=== PATIENT | female | born 1995 | race Caucasian/White ===

== ENCOUNTER 2020-12-02 09:45 | Emergency (ER) | payer MEDICAID ==
[~2020-12-02 09:45] MED LIST: AMOX250S5 PO; HYDR118S PO; TETRACAINE LOLLIPOPS PO
[2020-12-02 09:57] VITALS: BP 122/74
--- NOTE | 2020-12-02 10:19 | ED General ---
General Chief Complaint: Dental Problems/Pain Stated Complaint: TOOTH PAIN Nursing Triage Note: Pain in R upper tooth x 3 days. Woke up with swelling and increased pain today. Is supposed to have surgery to remove broken tooth but has not had it done yet. Was on clindamycin for this same tooth a couple months ago. Nursing Sepsis Screen: No Definite Risk Exam Limitations: No Limitations History of Present Illness Date Seen by Provider: Dec 02, 2020 Time Seen by Provider: 10:14 Initial Comments Patient is a 25-year-old female with chronic dental pain who presents with right upper posterior molar gingival swelling and cheek swelling. Pain is dull moderate to severe worse with mouth opening and chewing. No relief of symptoms rnql-kzo-[id number] medications. Patient awoke with facial pain and swelling to this morning. R No drooling dysphonia dysphagia. No fever chills or sweats. Most recent round of antibiotics was 3 months ago. Patient has a scheduled dental procedure for extraction in the next 2 weeks. Timing/Duration: 1-3 Hours Severity: Moderate Associated Systoms: Other Allergies and Home Medications Allergies Coded Allergies: No Known Drug Allergies (Unverified , 08/26/11) Home Medications Amoxicillin 250 Mg/5 Ml Susp.recon, 2 TSP PO BID, (Reported) Hydrocodone Bit/Acetaminophen 120 Ml Solution, 10-15 ML PO Q4HR PRN, (Reported) [Tetracaine Lollipops] , PO UD, (Reported) Patient Home Medication List Home Medication List Reviewed: Yes Review of Systems Review of Systems Constitutional: see HPI EENTM: see HPI Respiratory: see HPI Cardiovascular: see HPI Gastrointestinal: see HPI Genitourinary: see HPI Musculoskeletal: see HPI Skin: see HPI Psychiatric/Neurological: See HPI Hematologic/Lymphatic: See HPI Immunological/Allergic: see HPI All Other Systems Reviewed Negative Unless Noted: Yes Past Lzwbkfx-Rgvoqv-Midlop Hx Past Med/Social Hx: Reviewed Nursing Past Med/Soc Hx Patient Social History Alcohol Use: Denies Use Smoking Status: Current Everyday Smoker 2nd Hand Smoke Exposure: No Recent Infectious Disease Expo: No Recent Hopitalizations: No Seasonal Allergies Seasonal Allergies: No Past Medical History Surgeries: Yes (dental) Appendectomy, Tonsillectomy Respiratory: No Cardiac: No Neurological: No Female Reproductive Disorders: Endometriosis Genitourinary: No Gastrointestinal: No Musculoskeletal: No Endocrine: No HEENT: No Cancer: No Psychosocial: No Integumentary: No Blood Disorders: No Physical Exam Vital Signs Vital Signs - First Documented 12/02/20 09:57 Temp 35.8 Pulse 92 Resp 16 B/P (MAP) 122/74 (90) Pulse Ox 99 Capillary Refill : Less Than 3 Seconds Height, Weight, BMI Height: '" Weight: lbs. oz. kg; BMI Method: General Appearance: No Apparent Distress, Anxious Eyes: Bilateral Eye Normal Inspection, Bilateral Eye PERRL, Bilateral Eye Abnormal EOM HEENT: PERRL/EOMI, Normal ENT Inspection, Pharynx Normal, Other (Right maxillary swelling, right upper posterior gingival swelling with dental erosions. No facial abscess or cellulitis. No dysphonia drooling or dysphagia) Neck: Full Range of Motion, Non Tender, Supple Respiratory: Lungs Clear Cardiovascular: Regular Rate, Rhythm Focused Exam Sepsis Stage: Ruled Out Progress/Results/Core Measures Suspected Sepsis Recent Fever Within 48 Hours: No Infection Criteria Present: None New/Unexplained Altered Menta: No Sepsis Screen: No Definite Risk SIRS Temperature: Pulse: 92 Respiratory Rate: 16 Blood Pressure 122 /74 Mean: 90 Results/Orders Vital Signs/I&O 12/02/20 09:57 Temp 35.8 Pulse 92 Resp 16 B/P (MAP) 122/74 (90) Pulse Ox 99 Capillary Refill : Less Than 3 Seconds Blood Pressure Mean: 90 Departure Communication (Admissions) Dental erosion with facial swelling suspect infected dental root. No discrete abscess on exam. Antibiotics and pain medication prescribed with dental follow- up TIANNA recommended Impression Primary Impression: Dental caries Additional Impression: Right facial swelling Disposition: 01 HOME, SELF-CARE Condition: Stable Departure-Patient Inst. Decision time for Depature: 10:19 Referrals: RAHEEL HORN DO (PCP) Primary Care Physician LILLIANA LAKHANI (Family) Primary Care Physician Patient Instructions: Dental Pain, Dental Pain (DC) Add. Discharge Instructions: Please take newly prescribed medications as directed and follow-up with your dentist in the next 2 to 3 days without fail. Return to the ED for fever, pennie oling, cellulitis or abscess formation. All discharge instructions reviewed with patient and/or family. Voiced understanding. Scripts Hydrocodone/Acetaminophen (Hydrocodone-Acetamin 5-325 mg) 1 Each Tablet 1 TAB PO Q4H PRN for PAIN-MODERATE (5-7), #10 TAB Prov: ULI MARTEL DO 12/02/20 Clindamycin HCl (Clindamycin HCl) 300 Mg Capsule 300 MG PO TID, #30 CAP Prov: ULI MARTEL DO 12/02/20 ULI MARTEL DO Dec 02, 2020 10:19
[2020-12-02] MEDS ORDERED: CLIN300C12 PO (10:21)
[2020-12-02] MEDS ORDERED: ACHD5005 PO (10:21)
== END 2020-12-02 10:24 | disposition home or self-care (01) ==
LOC: EDUNIT# 09:45 → ER FS 09:47
DX: K02.9 Dental caries, unspecified (principal); R22.0 Localized swelling, mass and lump, head; Z79.2 Long term (current) use of antibiotics
CPT/HCPCS: 99282

== ENCOUNTER 2021-04-08 21:19 | Emergency (ER) | payer MEDICAID ==
[~2021-04-08] VITALS: Ht 162.6 cm; Wt 84.4 kg
[~2021-04-08 21:19] MED LIST changes: +ACHD5005 PO; +CLIN300C12 PO
[2021-04-08 21:24] VITALS: BP 138/92
--- NOTE | 2021-04-08 21:45 | ED EENT ---
History of Present Illness General Chief Complaint: Dental Problems/Pain Stated Complaint: TOOTH PAIN Nursing Triage Note: PT AMBULATE TO ROOM FS02 WITH C/O RIGHT LOWER DENTAL PAIN X1 WEEK. PT REPORTS TAKING SALTWATER RINSES, TYLENOL, IBUPROFEN, AND HEAT/COLD COMPRESSES WITHOUT RELIEF. Source: patient Exam Limitations: no limitations History of Present Illness Date Seen by Provider: Apr 08, 2021 Time Seen by Provider: 21:40 Initial Comments 35-year-old female presents with tooth pain for the last several days. Is having some jaw swelling and pain as well. Not able to see a dentist yet, but going to have an appointment soon. Denies previous problems with this tooth, but knew there was a slight break in the tooth but it has not given her problems. Denies any pain with swallowing, denies any swelling of her throat or tongue or mouth. No known drug allergies, she is taking Tylenol without relief. Allergies and Home Medications Allergies Coded Allergies: No Known Drug Allergies (Unverified , 08/26/11) Home Medications Amoxicillin 250 Mg/5 Ml Susp.recon, 2 TSP PO BID, (Reported) Clindamycin HCl 300 Mg Capsule, 300 MG PO TID Prescribed by: ULI MARTEL on 12/02/20 1021 Hydrocodone Bit/Acetaminophen 120 Ml Solution, 10-15 ML PO Q4HR PRN, (Reported) Hydrocodone/Acetaminophen 1 Each Tablet, 1 TAB PO Q4H PRN for PAIN-MODERATE (5- 7) Prescribed by: ULI MARTEL on 12/02/20 1021 [Tetracaine Lollipops] , PO UD, (Reported) Patient Home Medication List Home Medication List Reviewed: Yes Review of Systems Review of Systems Constitutional: No fever, No malaise, No weakness Mouth: see HPI, pain, swelling Throat: denies pain, denies swelling, denies discharge, denies neck stiffness Respiratory: no symptoms reported Skin: No change in color, No lesions, No lumps, No rash Past Gmlxsll-Diyrho-Jvdaoh Hx Patient Social History Tobacco Use?: Yes Tobacco type used: Cigarettes Smoking Status: Current Everyday Smoker Use of E-Cig and/or Vaping dev: Yes E-Cig or Vaping type used: CBD Use of E-Cig and/or Vaping Murray: Current Everyday User Substance use?: Yes Substance type: Other Additional substance use comme: CBD VAP Alcohol Use?: No Pt feels they are or have been: No Seasonal Allergies Seasonal Allergies: No Past Medical History Surgeries: Yes (dental) Appendectomy, Tonsillectomy Respiratory: No Cardiac: No Neurological: No Female Reproductive Disorders: Endometriosis Genitourinary: No Gastrointestinal: No Musculoskeletal: No Endocrine: No HEENT: No Cancer: No Psychosocial: No Integumentary: No Blood Disorders: No Physical Exam Vital Signs Vital Signs - First Documented 04/08/21 21:24 Temp 36.2 Pulse 72 Resp 17 B/P (MAP) 138/92 (107) O2 Delivery Room Air Height, Weight, BMI Height: '" Weight: lbs. oz. kg; 31.00 BMI Method: General Appearance: WD/WN, no apparent distress Ears: bilateral ear auricle normal, bilateral ear canal normal, bilateral ear bleeding Nose: normal inspection; No active bleeding Mouth/Throat: normal mouth inspection, pharynx normal, dental tenderness (R post lower molar w open cavity lateral molar. gum swelling surrounding) Neck: non-tender, supple; No lymphadenopathy (R), No lymphadenopathy (L) Progress/Results/Core Measures Results/Orders Vital Signs/I&O 04/08/21 21:24 Temp 36.2 Pulse 72 Resp 17 B/P (MAP) 138/92 (107) O2 Delivery Room Air Blood Pressure Mean: 107 Departure Impression Primary Impression: Dental caries Disposition: 01 HOME, SELF-CARE Condition: Stable Departure-Patient Inst. Decision time for Depature: 21:49 Referrals: RAHEEL HORN DO (PCP) Primary Care Physician LILLIANA LAKHANI (Family) Primary Care Physician Patient Instructions: Tooth Decay, Adult (DC) Add. Discharge Instructions: Call tomorrow to schedule a Dentist appointment All discharge instructions reviewed with patient and/or family. Voiced understanding. Scripts Penicillin V Potassium (Penicillin V Potassium) 500 Mg Tablet 500 MG PO TID for 7 Days, #21 TAB Prov: JOSE SNIDER DO 04/08/21 Ibuprofen (Ibuprofen) 800 Mg Tablet 800 MG PO Q8H PRN for PAIN, #30 TAB 0 Refills Prov: GONZÁLEZVENSTINEJOSE DO 04/08/21 ROJOSE JIMENES DO Apr 08, 2021 21:45
[2021-04-08] MEDS ORDERED: PENI500T PO (21:48)
[2021-04-08] MEDS ORDERED: IBUP-1780 PO (21:48)
[2021-04-08] MEDS ORDERED: AMOXICILLIN 500 MG (POLYMOX) CAP PO STA (21:48)
== END 2021-04-08 21:58 | disposition home or self-care (01) ==
LOC: EDUNIT# 21:19 → ER FS 21:20
DX: K02.9 Dental caries, unspecified (principal); F17.210 Nicotine dependence, cigarettes, uncomplicated
CPT/HCPCS: 99283

== ENCOUNTER 2021-07-06 08:09 | Emergency (ER) | payer MEDICAID ==
[~2021-07-06] VITALS: Ht 162.6 cm; Wt 86.2 kg
[~2021-07-06 08:09] MED LIST changes: +CLIN-144 PO; -CLIN300C12 PO; +IBUP-1780 PO; +PENI500T PO
[2021-07-06] MEDS ORDERED: NS IV 1000 ML 1,000 ML IV STA (08:24)
[2021-07-06] MEDS ORDERED: ONDANSETRON 4 MG/2 ML (SDV) Z0FRAN IVP STA (08:24)
--- NOTE | 2021-07-06 08:31 | ED General ---
General Stated Complaint: ABD PAIN; DIARRHEA Source of Information: Patient History of Present Illness Date Seen by Provider: Jul 06, 2021 Time Seen by Provider: 08:11 Initial Comments 26 yo female presenting with complaints of abdominal cramping and diarrhea since about 0. She is approximately 15 weeks EGA with SARA 21 December 2021 by ultrasound. She has irregular menstrual periods and thinks her last period was in January. She denies vaginal bleeding or discharge and no pain with urination. She ate [employer] yesterday and is worried she has food poisoning causing her diarrhea and abdominal cramping. She Has had this abdominal cramping with diarrhea multiple times in the past but usually it goes away after a few times of diarrhea, but this time it is lasting longer than usual. She has her next appointment with Dr. Mckinley for follow up on . She is and had spina bifida for the 2nd child during . She currently denies fever, chills, headache, cough, short of breath. She has nausea each morning during this . She does take dissolvable Zofran for that. She had 1 episode of emesis this am after coughing. She took 2 Tums but has not taken any other medicine. She denies feeling light headed or dizzy. She has had no blood in urin e, stool, or emesis. She reports the diarrhea is just watery. After she has watery diarrhea stool she has improved cramping pain in abdomen. She is worried about the baby and the and wants to hear the baby's heartbeat to know it is ok. Timing/Duration: 12 Hours Severity: Moderate Associated Systoms: No Chest Pain, No Cough, No Diaphoresis, No Fever/Chills, No Headaches, No Loss of Appetite, No Malaise; Nausea/Vomiting (chronic nausea, especially in mornings, with ); No Rash, No Seizure, No Shortness of Air, No Syncope, No Weakness Allergies and Home Medications Allergies Coded Allergies: No Known Drug Allergies (Unverified , 08/26/11) Patient Home Medication List Home Medication List Reviewed: Yes Buspirone HCl (Buspirone HCl) 15 Mg Tablet, 15 MG PO BID, (Reported) Entered as Reported by: SHAILESH TRISTAN on 07/06/21 2398 Last Action: New Order Dicyclomine HCl (Dicyclomine HCl) 10 Mg Capsule, 10 MG PO QID PRN for abdominal cramping Prescribed by: SHAILESH TRISTAN on 07/06/21 0943 Discontinued Medications Amoxicillin (Amoxicillin) 250 Mg/5 Ml Susp.recon, 2 TSP PO BID, (Reported) Entered as Reported by: CHRISTINE QUINTERO on 08/26/111614 Last Action: Discontinued Clindamycin HCl (Clindamycin HCl) 300 Mg Capsule, 300 MG PO TID Prescribed by: ULI MARTEL on 12/02/20 102 Last Action: Discontinued Hydrocodone Bit/Acetaminophen (Hydrocodone-Apap 7.5-500 Mg/15) 120 Ml Solution, 10-15 ML PO Q4HR PRN, (Reported) Entered as Reported by: CHRISTINE QUINTERO on 08/26/111614 Last Action: Discontinued Hydrocodone/Acetaminophen (Hydrocodone-Acetamin 5-325 mg) 1 Each Tablet, 1 TAB PO Q4H PRN for PAIN-MODERATE (5-7) Prescribed by: ULI MARTEL on 12/02/20 102 Last Action: Discontinued Ibuprofen (Ibuprofen) 800 Mg Tablet, 800 MG PO Q8H PRN for PAIN Prescribed by: JOSE SNIDER on 04/08/212147 Last Action: Discontinued Penicillin V Potassium (Penicillin V Potassium) 500 Mg Tablet, 500 MG PO TID Prescribed by: JOSE SNIDER on 04/08/212147 Last Action: Discontinued [Tetracaine Lollipops] , PO UD, (Reported) Entered as Reported by: CHRISTINE QUINTERO on 08/26/111614 Last Action: Discontinued Review of Systems Review of Systems Constitutional: No chills, No dizziness, No fever EENTM: no symptoms reported Respiratory: no symptoms reported Cardiovascular: no symptoms reported Gastrointestinal: see HPI Genitourinary: see HPI : Yes Expected Date of Delivery: Dec 21, 2021 Musculoskeletal: back pain (chronic low back pain) Skin: no symptoms reported Psychiatric/Neurological: Anxiety Past Kvwtofr-Femivt-Xbbtvn Hx Patient Social History Tobacco Use?: No Seasonal Allergies Seasonal Allergies: No Past Medical History Surgery/Hospitalization HX: Appendectomy Surgeries: Yes (dental) Appendectomy, Tonsillectomy Respiratory: No Cardiac: No Neurological: No Female Reproductive Disorders: Endometriosis Genitourinary: No Gastrointestinal: No Musculoskeletal: No Endocrine: No HEENT: No Cancer: No Psychosocial: No Integumentary: No Blood Disorders: No Physical Exam Vital Signs Vital Signs - First Documented 07/06/21 07/06/21 08:12 09:50 Temp 36.9 Pulse 87 Resp 17 B/P (MAP) 156/100 (118) Pulse Ox 99 O2 Delivery Room Air Capillary Refill : Height, Weight, BMI Height: '" Weight: lbs. oz. kg; 31.00 BMI Method: General Appearance: Anxious HEENT: PERRL/EOMI, Pharynx Normal Neck: Full Range of Motion, Normal Inspection, Non Tender, Supple Respiratory: Chest Non Tender, Lungs Clear, Normal Breath Sounds, No Accessory Muscle Use, No Respiratory Distress Cardiovascular: Regular Rate, Rhythm, Normal Peripheral Pulses Gastrointestinal: No Pulsatile Mass, Soft, Abnormal Bowel Sounds (hypoactive); No Guarding, No Rebound; Tenderness (mild diffuse tenderness to palpation, more pronounced in midline) Rectal: Deferred Extremity: Normal Capillary Refill, Normal Inspection, No Pedal Edema Neurologic/Psychiatric: Alert, Oriented x3, airport representative II-XII Norm as Tested Skin: Normal Color, Warm/Dry Progress/Results/Core Measures Suspected Sepsis SIRS Temperature: Pulse: Respiratory Rate: Laboratory Tests 07/06/21 08:32: White Blood Count 13.6H Blood Pressure / Mean: Laboratory Tests 07/06/21 08:32: Creatinine 0.50L, Platelet Count 354, Total Bilirubin 0.3 Results/Orders Lab Results Laboratory Tests Test 07/06/21 08:32 Range/Units White Blood Count 13.6 H 4.3-11.0 10^3/uL Red Blood Count 4.35 3.80-5.11 10^6/uL Hemoglobin 13.8 11.5-16.0 g/dL Hematocrit 41 35-52 % Mean Corpuscular Volume 93 80-99 fL Mean Corpuscular Hemoglobin 32 25-34 pg Mean Corpuscular Hemoglobin Concent 34 32-36 g/dL Red Cell Distribution Width 13.5 10.0-14.5 % Platelet Count 354 130-400 10^3/uL Mean Platelet Volume 9.1 9.0-12.2 fL Immature Granulocyte % (Auto) 1 % Neutrophils (%) (Auto) 72 42-75 % Lymphocytes (%) (Auto) 15 12-44 % Monocytes (%) (Auto) 9 0-12 % Eosinophils (%) (Auto) 3 0-10 % Basophils (%) (Auto) 0 0-10 % Neutrophils # (Auto) 9.7 H 1.8-7.8 X 10^3 Lymphocytes # (Auto) 2.1 1.0-4.0 X 10^3 Monocytes # (Auto) 1.2 H 0.0-1.0 X 10^3 Eosinophils # (Auto) 0.4 H 0.0-0.3 10^3/uL Basophils # (Auto) 0.1 0.0-0.1 10^3/uL Immature Granulocyte # (Auto) 0.1 0.0-0.1 10^3/uL Sodium Level 136 135-145 MMOL/L Potassium Level 3.9 3.6-5.0 MMOL/L Chloride Level 102 98-107 MMOL/L Carbon Dioxide Level 21 21-32 MMOL/L Anion Gap 13 5-14 MMOL/L Blood Urea Nitrogen 8 7-18 MG/DL Creatinine 0.50 L 0.60-1.30 MG/DL Estimat Glomerular Filtration Rate 148 BUN/Creatinine Ratio 16 Glucose Level 91 70-105 MG/DL Calcium Level 9.1 8.5-10.1 MG/DL Corrected Calcium 9.0 8.5-10.1 MG/DL Total Bilirubin 0.3 0.1-1.0 MG/DL Aspartate Amino Transf (AST/SGOT) 16 5-34 U/L Alanine Aminotransferase (ALT/SGPT) 9 0-55 U/L Alkaline Phosphatase 43 40-136 U/L Total Protein 7.1 6.4-8.2 GM/DL Albumin 4.1 3.2-4.5 GM/DL Lipase 17 8-78 U/L My Orders Orders - SHAILESH TRISTAN MD Comprehensive Metabolic Panel (07/06/21 08:24) Lipase (07/06/21 08:24) Ed Iv/Invasive Line Start (07/06/21 08:24) Cbc With Automated Diff (07/06/21 08:24) Ns Iv 1000 Ml (Sodium Chloride 0.9%) (07/06/21 08:24) Ondansetron Injection (Zofran Injectio (07/06/21 08:24) Heart Tones (07/06/21 08:24) Vital Signs/I&O 11/6/21 11/6/21 08:12 09:50 Temp 36.9 Pulse 87 74 Resp 17 17 B/P (MAP) 156/100 (118) 108/69 Pulse Ox 99 O2 Delivery Room Air Room Air Capillary Refill : Progress Note #1: Progress Note Check heart tones, basic labs and urine. Give IVF for hydration with Zofran for nausea. Progress Note #2: Time: 09:24 Progress Note CBC shows mild elevation of WBC to 13.6 without left shift. This could be result of , stress, dehydration, diarrhea. Chemistry without acute significant abnormality. She is resting in room after fluids and Zofran. Will obtain heart tones and anticipate discharge to home to encourage fluids and rest. Progress Note #3: Progress Note Patient feeling better and will try dicyclomine po for cramping and spasms. heart tones found easily and are in the 150s. Reassured pt and counseled on follow up and return precautions. Departure Impression Primary Impression: Diarrhea, unspecified Qualified Codes: R19.7 - Diarrhea, unspecified Additional Impressions: , incidental Abdominal cramping, generalized Disposition: 01 HOME, SELF-CARE Condition: Stable Departure-Patient Inst. Decision time for Depature: 09:42 Referrals: FAITH FREGOSO MD (PCP/Family) Primary Care Physician MARCO ANTONIO MCKINLEY DO Patient Instructions: Diarrhea, Adult ED, Taking in Enough Fluids While You Are , Medications and Add. Discharge Instructions: Keep sipping on fluids and try to stay well hydrated Check back with clinic and Dr. Mckinley for continued concerns. Follow a liquid diet for 12-24 hours and then if you tolerate that you could add in bland foods and advance your diet as you tolerate it. Scripts Dicyclomine HCl (Dicyclomine HCl) 10 Mg Capsule 10 MG PO QID PRN for abdominal cramping for 3 Days, #12 CAP 0 Refills Prov: SHAILESH TRISTAN MD 07/06/21 SHAILESH TRISTAN MD Jul 06, 2021 08:31
[2021-07-06] MEDS ORDERED: BUSP15TA60 PO (08:35)
[2021-07-06 08:41] LABS: HEMATOCRIT 41 % (35-52); HEMOGLOBIN 13.8 g/dL (11.5-16.0); MEAN CORPUSCULAR HEMOGLOBIN 32 pg (25-34); MEAN CORPUSCULAR HGB CONC 34 g/dL (32-36); MEAN CORPUSCULAR VOLUME 93 fL (80-99); MEAN PLATELET VOLUME 9.1 fL (9.0-12.2); PLATELET COUNT 354 10^3/uL (130-400); WHITE BLOOD COUNT 13.6 10^3/uL (4.3-11.0)
[2021-07-06 08:42] LABS: BASOPHILS # (AUTO) 0.1 10^3/uL (0.0-0.1); BASOPHILS % (AUTO) 0 % (0-10); EOSINOPHILS # (AUTO) 0.4 10^3/uL (0.0-0.3); EOSINOPHILS % (AUTO) 3 % (0-10); LYMPHOCYTES # (AUTO) 2.1 X 10^3 (1.0-4.0); LYMPHOCYTES % (AUTO) 15 % (12-44); MONOCYTES # (AUTO) 1.2 X 10^3 (0.0-1.0); MONOCYTES % (AUTO) 9 % (0-12); NEUTROPHILS # (AUTO) 9.7 X 10^3 (1.8-7.8); NEUTROPHILS % (AUTO) 72 % (42-75)
[2021-07-06 08:59] LABS: ALBUMIN 4.1 GM/DL (3.2-4.5); BILIRUBIN,TOTAL 0.3 MG/DL (0.1-1.0); CALCIUM 9.1 MG/DL (8.5-10.1); CREATININE SERUM 0.5 MG/DL (0.60-1.30); POTASSIUM 3.9 MMOL/L (3.6-5.0); TOTAL PROTEIN 7.1 GM/DL (6.4-8.2)
[2021-07-06] MEDS ORDERED: DICY10CA12 PO (09:43)
[2021-07-06 09:50] VITALS: BP 108/69
== END 2021-07-06 09:51 | disposition home or self-care (01) ==
LOC: EDUNIT# 08:09 → ER FS 08:10
DX: O26.892 Other specified pregnancy related conditions, second trimester (principal); R19.7 Diarrhea, unspecified; R10.84 Generalized abdominal pain; Z3A.15 15 weeks gestation of pregnancy
CPT/HCPCS: 36415; 80053; 83690; 85025

== ENCOUNTER 2021-10-21 01:51 | Emergency (ER) | payer MEDICAID ==
[~2021-10-21] VITALS: Ht 162 cm; Wt 102.0 kg
[~2021-10-21 01:51] MED LIST changes: +BUSP15TA60 PO; +DICY10CA12 PO
[2021-10-21] MEDS ORDERED: NS IV 1000 ML 1,000 ML IV SCH ×2 (02:15→03:30)
--- NOTE | 2021-10-21 02:17 | ED GU-Female ---
General Stated Complaint: FEVER History of Present Illness Date Seen by Provider: Oct 21, 2021 Time Seen by Provider: 01:57 Initial Comments 26 yr [id number] F who is 31 weeks with SARA of 12/20/21, with PMH of 1 c- section and her son having spina bifida, is here with c/o fever which began last night at 10:30 PM with associated chills and right sided flank and back pain. Denies dysuria, diarrhea, hematuria, vaginal bleeding, chest pain, SOB, cough. Pt does not drink much water, only 1 or 2 glasses a day. Pt took about 3,000mg of Tylenol since 10:30 pm last night. Denies any known sick contacts. Allergies and Home Medications Allergies Coded Allergies: No Known Drug Allergies (Unverified , 08/26/11) Patient Home Medication List Home Medication List Reviewed: Yes Buspirone HCl (Buspirone HCl) 15 Mg Tablet, 15 MG PO BID, (Reported) Entered as Reported by: SHAILESH TRISTAN on 07/06/21 0835 Dicyclomine HCl (Dicyclomine HCl) 10 Mg Capsule, 10 MG PO QID PRN for abdominal cramping Prescribed by: SHAILESH TRISTAN on 07/06/21 0943 Review of Systems Review of Systems Constitutional: no symptoms reported, chills, fever EENTM: ear pain Respiratory: no symptoms reported Cardiovascular: no symptoms reported Gastrointestinal: RUQ Genitourinary: flank pain : Yes Expected Date of Delivery: Dec 20, 2021 Musculoskeletal: back pain Skin: no symptoms reported Psychiatric/Neurological: No Symptoms Reported Endocrine: No Symptoms Reported Hematologic/Lymphatic: No Symptoms Reported Past Ijugmah-Kpcfca-Zavijx Hx Seasonal Allergies Seasonal Allergies: No Past Medical History Surgery/Hospitalization HX: Appendectomy Surgeries: Yes (dental) Appendectomy, Tonsillectomy Respiratory: No Cardiac: No Neurological: No Female Reproductive Disorders: Endometriosis Genitourinary: No Gastrointestinal: No Musculoskeletal: No Endocrine: No HEENT: No Cancer: No Psychosocial: No Integumentary: No Blood Disorders: No Physical Exam Vital Signs Vital Signs - First Documented 10/21/21 01:55 Temp 37.9 Pulse 106 Resp 17 B/P (MAP) 140/63 (88) Pulse Ox 98 O2 Delivery Room Air Capillary Refill : Height, Weight, BMI Height: '" Weight: lbs. oz. kg; 32.00 BMI Method: General Appearance: WD/WN, no apparent distress HEENT: PERRL/EOMI, normal ENT inspection, TMs normal, pharynx normal Neck: non-tender, full range of motion, supple Cardiovascular: regular rate, rhythm, no edema Respiratory: chest non-tender, lungs clear, normal breath sounds, no respiratory distress Gastrointestinal: normal bowel sounds, soft, tenderness (RUQ), other (FHR is 174) Back: normal inspection, no vertebral tenderness, CVA tenderness (R) Extremities: normal range of motion Neurologic/Psychiatric: alert, normal mood/affect, oriented x 3 Skin: normal color Progress/Results/Core Measures Suspected Sepsis SIRS Temperature: Pulse: Respiratory Rate: Laboratory Tests 10/21/21 02:05: White Blood Count 9.8 Blood Pressure / Mean: Laboratory Tests 10/21/21 02:05: Creatinine 0.46L, Platelet Count 225, Total Bilirubin 0.2 Results/Orders Lab Results Laboratory Tests Test 10/21/21 01:58 10/21/21 02:05 10/21/21 02:10 Range/Units Urine Color YELLOW Urine Clarity CLEAR Urine pH 7.0 5-9 Urine Specific [place] 1.010 L 1.016-1.022 Urine Protein NEGATIVE NEGATIVE Urine Glucose (UA) NEGATIVE NEGATIVE Urine Ketones NEGATIVE NEGATIVE Urine Nitrite NEGATIVE NEGATIVE Urine Bilirubin NEGATIVE NEGATIVE Urine Urobilinogen 0.2 < = 1.0 MG/DL Urine Leukocyte Esterase NEGATIVE NEGATIVE Urine RBC (Auto) NEGATIVE NEGATIVE Urine RBC RARE /HPF Urine WBC 0-2 /HPF Urine Squamous Epithelial Cells 2-5 /HPF Urine Crystals NONE /LPF Urine Bacteria FEW H /HPF Urine Casts NONE /LPF Urine Mucus SMALL H /LPF Urine Culture Indicated NO White Blood Count 9.8 4.3-11.0 10^3/uL Red Blood Count 3.55 L 3.80-5.11 10^6/uL Hemoglobin 11.2 L 11.5-16.0 g/dL Hematocrit 32 L 35-52 % Mean Corpuscular Volume 91 80-99 fL Mean Corpuscular Hemoglobin 32 25-34 pg Mean Corpuscular Hemoglobin Concent 35 32-36 g/dL Red Cell Distribution Width 12.9 10.0-14.5 % Platelet Count 225 130-400 10^3/uL Mean Platelet Volume 9.4 9.0-12.2 fL Immature Granulocyte % (Auto) 1 % Neutrophils (%) (Auto) 75 42-75 % Lymphocytes (%) (Auto) 6 L 12-44 % Monocytes (%) (Auto) 15 H 0-12 % Eosinophils (%) (Auto) 3 0-10 % Basophils (%) (Auto) 1 0-10 % Neutrophils # (Auto) 7.4 1.8-7.8 10^3/uL Lymphocytes # (Auto) 0.6 L 1.0-4.0 10^3/uL Monocytes # (Auto) 1.5 H 0.0-1.0 10^3/uL Eosinophils # (Auto) 0.3 0.0-0.3 10^3/uL Basophils # (Auto) 0.1 0.0-0.1 10^3/uL Immature Granulocyte # (Auto) 0.1 0.0-0.1 10^3/uL Neutrophils % (Manual) 79 % Lymphocytes % (Manual) 5 % Monocytes % (Manual) 9 % Eosinophils % (Manual) 1 % Myelocytes % 1 % Band Neutrophils 3 % Atypical Lymphocytes 1 % Reactive Lymphocytes 1 % Platelet Estimate NORMAL Blood Morphology Comment NORMAL Sodium Level 137 135-145 MMOL/L Potassium Level 3.6 3.6-5.0 MMOL/L Chloride Level 103 98-107 MMOL/L Carbon Dioxide Level 18 L 21-32 MMOL/L Anion Gap 16 H 5-14 MMOL/L Blood Urea Nitrogen 5 L 7-18 MG/DL Creatinine 0.46 L 0.60-1.30 MG/DL Estimat Glomerular Filtration Rate 134 BUN/Creatinine Ratio 11 Glucose Level 115 H 70-105 MG/DL Calcium Level 8.9 8.5-10.1 MG/DL Corrected Calcium 9.4 8.5-10.1 MG/DL Total Bilirubin 0.2 0.1-1.0 MG/DL Aspartate Amino Transf (AST/SGOT) 61 H 5-34 U/L Alanine Aminotransferase (ALT/SGPT) 28 0-55 U/L Alkaline Phosphatase 61 40-136 U/L Total Protein 6.1 L 6.4-8.2 GM/DL Albumin 3.4 3.2-4.5 GM/DL Lipase 21 8-78 U/L Serum Alcohol < 10 <10 MG/DL Monoscreen NEGATIVE NEGATIVE Influenza Type A Antigen NEGATIVE NEGATIVE Influenza Type B Antigen NEGATIVE NEGATIVE My Orders Orders - JULIO MENDEZ MD Ed Iv/Invasive Line Start (10/21/21 02:04) Ns Iv 1000 Ml (Sodium Chloride 0.9%) (10/21/21 02:15) Cbc With Automated Diff (10/21/21 02:04) Comprehensive Metabolic Panel (10/21/21 02:04) Coronavirus Sars-Cov-2 So 2018 (10/21/21 02:04) Influenza A & B Antigens (10/21/21 02:04) Ua Culture If Indicated (10/21/21 02:08) Manual Differential (10/21/21 02:05) Ns Iv 1000 Ml (Sodium Chloride 0.9%) (10/21/21 03:13) Ns Iv 1000 Ml (Sodium Chloride 0.9%) (10/21/21 03:30) Monotest (10/21/21 03:19) Lipase (10/21/21 03:22) Alcohol (10/21/21 03:23) Vital Signs/I&O 10/21/21 01:55 Temp 37.9 Pulse 106 Resp 17 B/P (MAP) 140/63 (88) Pulse Ox 98 O2 Delivery Room Air Capillary Refill : Progress Note : Progress Note 1. RIGHT FLANK PAIN/ FEVER: - Labs show an elevated monocyte count and elevated AST of 61. Monospot test negative, s. ETOH negative - COVID test pending, Flu test negative - UA unremarkable - Pt took 3000mg of Tylenol since 10:30 PM last night - Pt is so cannot have CT scan. Ordered out-patient u/s for the morning. Advised to f/u with JUNIOR SALES REPRESENTATIVE and PCP TIANNA for u/s results and further management. 2. DEHYDRATION: - Decreased BUN and creatinine - NS IVF bolus x 2 - Advised increased water intake, since pt has not been drinking much water Departure Impression Primary Impression: Dehydration during Additional Impression: Right flank pain Disposition: 01 HOME, SELF-CARE Condition: Improved Departure-Patient Inst. Referrals: FAITH FREGOSO MD (PCP/Family) Primary Care Physician Patient Instructions: Flank Pain (DC), Why Water Is Important to Health, Dehydration, Adult ED Add. Discharge Instructions: Increased water intake with goal of 8 to 10 glasses a day Ultrasound appointment in the morning in clinic - F/u with PCP and JUNIOR SALES REPRESENTATIVE Work/School Note: Work Release Form Date Seen in the Emergency Department: Oct 21, 2021 Return to Work: Oct 27, 2021 Restrictions: Need Release from Doctor Other Restrictions Listed Below: Quarantine until COVID test returns negative. Pt needs clearance by PCP JULIO MENDEZ MD Oct 21, 2021 02:17
[2021-10-21 02:20] LABS: BASOPHILS # (AUTO) 0.1 10^3/uL (0.0-0.1); BASOPHILS % (AUTO) 1 % (0-10); EOSINOPHILS # (AUTO) 0.3 10^3/uL (0.0-0.3); EOSINOPHILS % (AUTO) 3 % (0-10); HEMATOCRIT 32 % (35-52); HEMOGLOBIN 11.2 g/dL (11.5-16.0); LYMPHOCYTES # (AUTO) 0.6 10^3/uL (1.0-4.0); LYMPHOCYTES % (AUTO) 6 % (12-44); MEAN CORPUSCULAR HEMOGLOBIN 32 pg (25-34); MEAN CORPUSCULAR HGB CONC 35 g/dL (32-36); MEAN CORPUSCULAR VOLUME 91 fL (80-99); MEAN PLATELET VOLUME 9.4 fL (9.0-12.2); MONOCYTES # (AUTO) 1.5 10^3/uL (0.0-1.0); MONOCYTES % (AUTO) 15 % (0-12); NEUTROPHILS # (AUTO) 7.4 10^3/uL (1.8-7.8); NEUTROPHILS % (AUTO) 75 % (42-75); PLATELET COUNT 225 10^3/uL (130-400); WHITE BLOOD COUNT 9.8 10^3/uL (4.3-11.0)
[2021-10-21 02:28] LABS: BILIRUBIN,URINE NEGATIVE (NEGATIVE); CLARITY,URINE CLEAR; COLOR,URINE YELLOW; GLUCOSE, URINE (UA) NEGATIVE (NEGATIVE); KETONES,URINE NEGATIVE (NEGATIVE); LEUKOCYTE ESTERASE ,URINE NEGATIVE (NEGATIVE); NITRITE,URINE NEGATIVE (NEGATIVE); PROTEIN,URINE NEGATIVE (NEGATIVE)
[2021-10-21 02:45] LABS: BACTERIA,URINE FEW /HPF; RBC,URINE RARE /HPF; WBC,URINE 0-2 /HPF
[2021-10-21 02:48] LABS: ALBUMIN 3.4 GM/DL (3.2-4.5); BILIRUBIN,TOTAL 0.2 MG/DL (0.1-1.0); CALCIUM 8.9 MG/DL (8.5-10.1); CREATININE SERUM 0.46 MG/DL (0.60-1.30); POTASSIUM 3.6 MMOL/L (3.6-5.0); TOTAL PROTEIN 6.1 GM/DL (6.4-8.2)
[2021-10-21 02:50] LABS: ATYPICAL LYMPHOCYTES 1 %; BAND NEUTROPHILS 3 %; EOSINOPHILS % (MANUAL) 1 %; LYMPHOCYTES % (MANUAL) 5 %; MONOCYTES % (MANUAL) 9 %; MYELOCYTES % 1 %; NEUTROPHILS % (MANUAL) 79 %; PLATELET ESTIMATE NORMAL; RBC MORPH NORMAL; REACTIVE LYMPHOCYTES 1 %
[2021-10-21] MEDS ORDERED: NS IV 1000 ML 1,000 ML ONE (03:13)
[2021-10-21 03:45] LABS: LIPASE 21 U/L (8-78)
[2021-10-21 04:15] VITALS: BP 128/66
[2021-10-21] MEDS ORDERED: RX-OXYCODONE/APAP 5-325 MG #4 TAB PK PO PRN (04:15)
== END 2021-10-21 04:15 | disposition home or self-care (01) ==
LOC: EDUNIT# 01:51 → ER FS 01:53
DX: O98.513 Other viral diseases complicating pregnancy, third trimester (principal); U07.1 COVID-19; O26.893 Other specified pregnancy related conditions, third trimester; E86.0 Dehydration; R10.11 Right upper quadrant pain; Z3A.31 31 weeks gestation of pregnancy
CPT/HCPCS: 36415; 80053; 81000; 83690; 85007; 85027; 86308; 87635; 87804; 99284; G0480; 80320

== ENCOUNTER 2021-12-29 16:18 | Emergency (ER) | payer MEDICAID ==
[~2021-12-29] VITALS: Ht 162.5 cm; Wt 94.3 kg
--- NOTE | 2021-12-29 16:46 | ED General ---
General Chief Complaint: Skin/Wound Problems Stated Complaint: OPEN SUTURE Source of Information: Patient Exam Limitations: No Limitations History of Present Illness Date Seen by Provider: December 29, 2021 Time Seen by Provider: 16:23 Initial Comments 26-year-old female that had a recent on December 17 coming in due to concerns for her wound opening up a little bit on the left with some drainage. She has been treated with Bactrim for the past week for concerns for an infection around the incision. Dr. Mckinley here in town did the surgery. She is having moderate, constant, sharp pain around the which is slightly increased over the past couple days. She has been taking Tylenol as needed wh ich has been helping. She is otherwise denying any other acute complaints including any fever or nausea. Allergies and Home Medications Allergies Coded Allergies: No Known Drug Allergies (Unverified , 08/26/11) Patient Home Medication List Home Medication List Reviewed: Yes Buspirone HCl (Buspirone HCl) 15 Mg Tablet, 15 MG PO BID, (Reported) Entered as Reported by: SHAILESH TRISTAN on 07/06/21 0835 Dicyclomine HCl (Dicyclomine HCl) 10 Mg Capsule, 10 MG PO QID PRN for abdominal cramping Prescribed by: SHAILESH TRISTAN on 07/06/21 0943 Review of Systems Review of Systems Constitutional: No chills, No fever EENTM: No blurred vision Respiratory: no symptoms reported Cardiovascular: no symptoms reported Gastrointestinal: no symptoms reported Genitourinary: no symptoms reported Musculoskeletal: no symptoms reported Skin: other (Redness around her incision with some drainage) Psychiatric/Neurological: No Symptoms Reported Hematologic/Lymphatic: No Symptoms Reported Immunological/Allergic: no symptoms reported All Other Systems Reviewed Negative Unless Noted: Yes Past Pjgdpxx-Cbbcbj-Pmutnf Hx Patient Social History Substance use?: No Immunizations Up To Date First/Initial COVID19 Vaccinat: denies Seasonal Allergies Seasonal Allergies: No Past Medical History Surgery/Hospitalization HX: Appendectomy Surgeries: Yes (dental) Appendectomy, Tonsillectomy Respiratory: No Cardiac: No Neurological: No Female Reproductive Disorders: Endometriosis Genitourinary: No Gastrointestinal: No Musculoskeletal: No Endocrine: No HEENT: No Cancer: No Psychosocial: No Integumentary: No Blood Disorders: No Physical Exam Vital Signs Capillary Refill : Height, Weight, BMI Height: '" Weight: lbs. oz. kg; 38.00 BMI Method: General Appearance: No Apparent Distress, WD/WN Eyes: Bilateral Eye Normal Inspection HEENT: PERRL/EOMI, Normal ENT Inspection, Pharynx Normal Neck: Full Range of Motion, Normal Inspection, Non Tender, Supple Respiratory: Chest Non Tender, Lungs Clear, Normal Breath Sounds, No Accessory Muscle Use, No Respiratory Distress Cardiovascular: Regular Rate, Rhythm, No Edema, Normal Peripheral Pulses Gastrointestinal: Normal Bowel Sounds, Non Tender, Soft; No Distended, No Guarding; Other ( scar with some slight opening around the wound on the left wound edge with some minimal purulent drainage that is mixed with some blood, mild erythema that is blanching around the incision) Back: Normal Inspection, No CVA Tenderness, No Vertebral Tenderness Extremity: Normal Capillary Refill, Normal Inspection, Normal Range of Motion, Non Tender, No Calf Tenderness, No Pedal Edema Neurologic/Psychiatric: Alert, No Motor/Sensory Deficits, Normal Mood/Affect Skin: Normal Color, Warm/Dry Lymphatic: No Adenopathy Progress/Results/Core Measures Suspected Sepsis SIRS Temperature: Pulse: Respiratory Rate: Laboratory Tests 12/29/21 16:48: White Blood Count 11.3H Blood Pressure / Mean: Laboratory Tests 12/29/21 16:48: Creatinine 0.70, Platelet Count 452H, Total Bilirubin 0.2 Results/Orders Lab Results Laboratory Tests Test 12/29/21 16:48 Range/Units White Blood Count 11.3 H 4.3-11.0 10^3/uL Red Blood Count 4.24 3.80-5.11 10^6/uL Hemoglobin 13.1 11.5-16.0 g/dL Hematocrit 39 35-52 % Mean Corpuscular Volume 91 80-99 fL Mean Corpuscular Hemoglobin 31 25-34 pg Mean Corpuscular Hemoglobin Concent 34 32-36 g/dL Red Cell Distribution Width 13.4 10.0-14.5 % Platelet Count 452 H 130-400 10^3/uL Mean Platelet Volume 8.9 L 9.0-12.2 fL Immature Granulocyte % (Auto) 1 % Neutrophils (%) (Auto) 53 42-75 % Lymphocytes (%) (Auto) 27 12-44 % Monocytes (%) (Auto) 12 0-12 % Eosinophils (%) (Auto) 6 0-10 % Basophils (%) (Auto) 1 0-10 % Neutrophils # (Auto) 6.0 1.8-7.8 10^3/uL Lymphocytes # (Auto) 3.1 1.0-4.0 10^3/uL Monocytes # (Auto) 1.3 H 0.0-1.0 10^3/uL Eosinophils # (Auto) 0.7 H 0.0-0.3 10^3/uL Basophils # (Auto) 0.1 0.0-0.1 10^3/uL Immature Granulocyte # (Auto) 0.1 0.0-0.1 10^3/uL Sodium Level 138 135-145 MMOL/L Potassium Level 3.6 3.6-5.0 MMOL/L Chloride Level 103 98-107 MMOL/L Carbon Dioxide Level 22 21-32 MMOL/L Anion Gap 13 5-14 MMOL/L Blood Urea Nitrogen 16 7-18 MG/DL Creatinine 0.70 0.60-1.30 MG/DL Estimat Glomerular Filtration Rate 121 BUN/Creatinine Ratio 23 Glucose Level 102 70-105 MG/DL Calcium Level 9.6 8.5-10.1 MG/DL Corrected Calcium 9.6 8.5-10.1 MG/DL Total Bilirubin 0.2 0.1-1.0 MG/DL Aspartate Amino Transf (AST/SGOT) 32 5-34 U/L Alanine Aminotransferase (ALT/SGPT) 29 0-55 U/L Alkaline Phosphatase 88 40-136 U/L C-Reactive Protein 1.76 H <0.50 MG/DL Total Protein 7.2 6.4-8.2 GM/DL Albumin 4.0 3.2-4.5 GM/DL My Orders Orders - LILLIANA NAVA MD Cbc With Automated Diff (12/29/21 16:43) Comprehensive Metabolic Panel (12/29/21 16:43) Wound Culture (12/29/21 16:43) Crp Fs (12/29/21 16:43) Vital Signs/I&O Capillary Refill : Progress Note : Progress Note 26-year-old female here for concerns for wound infection. There is a small opening but is not completely dehisced. There are some purulent drainage which we cultured. White count around 11 and CRP just slightly elevated around 1.7. I contacted Dr. Mckinley and he wants to follow her up in clinic tomorrow. We will change her over to clindamycin. She was then discharged home in stable condition with strict return precautions Departure Impression Primary Impression: Post op infection Qualified Codes: T81.41XA - Infection following a procedure, superficial incisional surgical site, initial encounter Disposition: HOME, SELF-CARE Condition: Stable Departure-Patient Inst. Decision time for Depature: 17:27 Referrals: FAITH FREGOSO MD (PCP) Primary Care Physician Patient Instructions: Wound Infection Add. Discharge Instructions: [facility] You will need to begin taking them immediately. Follow-up with Dr. Mckinley tomorrow. Call his office in the morning to schedule the appointment. Scripts Hydrocodone Bit/Acetaminophen (HYDROcodone/APAP 5 MG/325 MG TAB) 1 Tab Tab 1 TAB PO Q6H for Pain for 2 Days, #8 TAB 0 Refills Prov: LILLIANA NAVA MD 12/29/21 Clindamycin HCl (Clindamycin HCl) 300 Mg Capsule 300 MG PO QID for 7 Days, #28 CAP Prov: LILLIANA NAVA MD 12/29/21 Work/School Note: Work Release Form Date Seen in the Emergency Department: December 29, 2021 Return to Work: December 30, 2021 Restrictions: No Restrictions LILLIANA NAVA MD December 29, 2021 16:46
[2021-12-29 16:55] LABS: BASOPHILS # (AUTO) 0.1 10^3/uL (0.0-0.1); BASOPHILS % (AUTO) 1 % (0-10); EOSINOPHILS # (AUTO) 0.7 10^3/uL (0.0-0.3); EOSINOPHILS % (AUTO) 6 % (0-10); HEMATOCRIT 39 % (35-52); HEMOGLOBIN 13.1 g/dL (11.5-16.0); LYMPHOCYTES # (AUTO) 3.1 10^3/uL (1.0-4.0); LYMPHOCYTES % (AUTO) 27 % (12-44); MEAN CORPUSCULAR HEMOGLOBIN 31 pg (25-34); MEAN CORPUSCULAR HGB CONC 34 g/dL (32-36); MEAN CORPUSCULAR VOLUME 91 fL (80-99); MEAN PLATELET VOLUME 8.9 fL (9.0-12.2); MONOCYTES # (AUTO) 1.3 10^3/uL (0.0-1.0); MONOCYTES % (AUTO) 12 % (0-12); NEUTROPHILS % (AUTO) 53 % (42-75); PLATELET COUNT 452 10^3/uL (130-400); WHITE BLOOD COUNT 11.3 10^3/uL (4.3-11.0)
[2021-12-29 17:20] LABS: CREATININE SERUM 0.7 MG/DL (0.60-1.30); POTASSIUM 3.6 MMOL/L (3.6-5.0)
[2021-12-29 17:21] LABS: BILIRUBIN,TOTAL 0.2 MG/DL (0.1-1.0); CALCIUM 9.6 MG/DL (8.5-10.1); TOTAL PROTEIN 7.2 GM/DL (6.4-8.2)
[2021-12-29] MEDS ORDERED: CLIN-144 PO (17:28)
[2021-12-29] MEDS ORDERED: ACHD5005 PO (17:28)
[2021-12-29] MEDS ORDERED: CLINDAMYCIN 150 MG (CLEOCIN) CAP PO STA (17:29)
[2021-12-29 18:42] VITALS: BP 139/89
== END 2021-12-29 17:47 | disposition home or self-care (01) ==
LOC: EDUNIT# 16:18 → ER FS 16:19
DX: T81.41XA Infection following a procedure, superficial incisional surgical site, initial encounter (principal)
CPT/HCPCS: 36415; 80053; 85025; 86141; 87070; 87205

== ENCOUNTER 2022-02-09 20:47 | Emergency (ER) | payer MEDICAID ==
[~2022-02-09] VITALS: Ht 162 cm; Wt 92.1 kg
--- NOTE | 2022-02-09 20:56 | ED Lower Extremity ---
General Stated Complaint: RIGHT ANKLE INJURY History of Present Illness Date Seen by Provider: Feb 09, 2022 Time Seen by Provider: 20:55 Initial Comments 26 yo with right ankle injury. pt reports she tripped down a step then tripped over a tree root. pt with swelling and tenderness to lateral aspect of right ankle and upper right foot. pt able to bear weight. has used an janet wrap. no other injury reported. Allergies and Home Medications Allergies Coded Allergies: No Known Drug Allergies (Unverified , 08/26/11) Patient Home Medication List Home Medication List Reviewed: Yes Buspirone HCl (Buspirone HCl) 15 Mg Tablet, 15 MG PO BID, (Reported) Entered as Reported by: SHAILESH TRISTAN on 07/06/21 0835 Clindamycin HCl (Clindamycin HCl) 300 Mg Capsule, 300 MG PO QID Prescribed by: LILLIANA NAVA on 12/29/21 1728 Dicyclomine HCl (Dicyclomine HCl) 10 Mg Capsule, 10 MG PO QID PRN for abdominal cramping Prescribed by: SHAILESH TRISTAN on 07/06/21 0943 Hydrocodone Bit/Acetaminophen (HYDROcodone/APAP 5 MG/325 MG TAB) 1 Tab Tab, 1 TAB PO Q6H Prescribed by: LILLIANA NAVA on 12/29/21 1729 Review of Systems Constitutional: no symptoms reported EENTM: no symptoms reported Respiratory: no symptoms reported Cardiovascular: no symptoms reported Gastrointestinal: no symptoms reported Genitourinary: no symptoms reported Musculoskeletal: see HPI Skin: see HPI Psychiatric/Neurological: No Symptoms Reported Past Knojqeg-Krkrfr-Qrbotd Hx Immunizations Up To Date First/Initial COVID19 Vaccinat: Not currently vaccinated Seasonal Allergies Seasonal Allergies: No Past Medical History Surgery/Hospitalization HX: x2 most current 12/17/21; Tonsilectomy; Appendectomy; Depression. Surgeries: Yes (dental) Appendectomy, Tonsillectomy Respiratory: No Cardiac: No Neurological: No Female Reproductive Disorders: Endometriosis Genitourinary: No Gastrointestinal: No Musculoskeletal: No Endocrine: No HEENT: No Cancer: No Psychosocial: No Integumentary: No Blood Disorders: No Physical Exam Vital Signs Capillary Refill : Height, Weight, BMI Height: '" Weight: lbs. oz. kg; 35.00 BMI Method: General Appearance: WD/WN, no apparent distress HEENT: PERRL/EOMI Cardiovascular: normal peripheral pulses, regular rate, rhythm Hips: bilateral hip non-tender Legs: bilateral leg non-tender Knees: bilateral knee non-tender Ankles: right ankle soft tissue tenderness, right ankle swelling Feet: right foot swelling Neurologic/Psychiatric: alert, normal mood/affect, oriented x 3 Skin: normal color, warm/dry Progress/Results/Core Measures Results/Orders My Orders Orders - SB PINZON DO Ankle 3 View Right (02/09/22 20:57) Gel Ankle Brace (02/09/22 21:24) Progress Progress Note : Progress Note Patient x-ray with some soft tissue swelling but no acute fracture. Placed in a gel ankle brace. Patient stable and discharged Diagnostic Imaging Diagonstic Imaging: Xray Plain Films/CT/US/NM/MRI: ankle Comments No acute fracture or dislocation noted Reviewed: Reviewed by Me Departure Impression Primary Impression: Right ankle sprain Qualified Codes: S93.401A - Sprain of unspecified ligament of right ankle, initial encounter Disposition: 01 HOME, SELF-CARE Condition: Stable Departure-Patient Inst. Referrals: FAITH FREGOSO MD (PCP/Family) Primary Care Physician Patient Instructions: Ankle Sprain, Using Cold for Pain Add. Discharge Instructions: Elevate your right leg when not able Ice for 20 minutes at a time 3-4 times daily for the next 2 days Tylenol or ibuprofen as needed for pain Follow-up with your primary care provider in 1 week if symptoms or not improving or worse for repeat x-ray SB PINZON DO Feb 09, 2022 20:56
--- NOTE | 2022-02-09 21:26 | Diagnostic Imaging Report ---
EXAM: Ankle 3 view right INDICATION: Right ankle pain. Trauma. COMPARISON: None. FINDINGS: No fracture or malalignment. Soft tissue shadows are unremarkable. IMPRESSION: Negative right ankle radiographs. Dictated by: Dictated on workstation # [id number]
[2022-02-09 21:57] VITALS: BP 133/110
== END 2022-02-09 21:59 | disposition home or self-care (01) ==
LOC: EDUNIT# 20:47 → ER FS 20:49
DX: S93.401A Sprain of unspecified ligament of right ankle, initial encounter (principal); Z28.310 Unvaccinated for COVID-19; W18.49XA Other slipping, tripping and stumbling without falling, initial encounter
CPT/HCPCS: 73610; 99282; L4350

== ENCOUNTER 2022-05-13 23:46 | Emergency (ER) | payer MEDICAID ==
[2022-05-14 00:02] LABS: BILIRUBIN,URINE NEGATIVE (NEGATIVE); CLARITY,URINE CLOUDY; COLOR,URINE YELLOW; GLUCOSE, URINE (UA) NEGATIVE (NEGATIVE); KETONES,URINE NEGATIVE (NEGATIVE); LEUKOCYTE ESTERASE ,URINE NEGATIVE (NEGATIVE); NITRITE,URINE NEGATIVE (NEGATIVE); PROTEIN,URINE TRACE (NEGATIVE)
[2022-05-14 00:08] LABS: BACTERIA,URINE NEGATIVE /HPF; RBC,URINE 50-100 /HPF; SQUAMOUS EPITHELIAL CELL,UR 0-2 /HPF; WBC,URINE RARE /HPF
[2022-05-14 00:36] LABS: BASOPHILS # (AUTO) 0.1 10^3/uL (0.0-0.1); BASOPHILS % (AUTO) 1 % (0-10); EOSINOPHILS # (AUTO) 0.5 10^3/uL (0.0-0.3); EOSINOPHILS % (AUTO) 5 % (0-10); HEMATOCRIT 40 % (35-52); HEMOGLOBIN 13.8 g/dL (11.5-16.0); LYMPHOCYTES # (AUTO) 2.7 10^3/uL (1.0-4.0); LYMPHOCYTES % (AUTO) 27 % (12-44); MEAN CORPUSCULAR HEMOGLOBIN 31 pg (25-34); MEAN CORPUSCULAR HGB CONC 34 g/dL (32-36); MEAN CORPUSCULAR VOLUME 90 fL (80-99); MEAN PLATELET VOLUME 9.6 fL (9.0-12.2); MONOCYTES # (AUTO) 1.2 10^3/uL (0.0-1.0); MONOCYTES % (AUTO) 12 % (0-12); NEUTROPHILS # (AUTO) 5.6 10^3/uL (1.8-7.8); NEUTROPHILS % (AUTO) 56 % (42-75); PLATELET COUNT 293 10^3/uL (130-400)
[2022-05-14 00:56] LABS: ALBUMIN 4.3 GM/DL (3.2-4.5); BILIRUBIN,TOTAL 0.2 MG/DL (0.1-1.0); CALCIUM 8.8 MG/DL (8.5-10.1); CREATININE SERUM 0.89 MG/DL (0.60-1.30); POTASSIUM 3.7 MMOL/L (3.6-5.0); TOTAL PROTEIN 7.1 GM/DL (6.4-8.2)
[2022-05-14] MEDS ORDERED: KETOROLAC 30 MG/ML VIAL IVP ONE (01:15)
--- NOTE | 2022-05-14 01:16 | ED Abdominal Pain ---
General Chief Complaint: - Reproductive Stated Complaint: LOWER ABD CRAMPING Nursing Triage Note: Pt complaining of right pelvic pain and right lower back pain. Pt states she was a couple of weeks late starting her period and thought she might be , but ended up starting her cycle today. Pt also states she has a hysterectomy scheduled for July 01. Source of Information: Patient Exam Limitations: No Limitations History of Present Illness Date Seen by Provider: May 13, 2022 Time Seen by Provider: 23:57 Initial Comments This 26-year-old young lady who suffers from endometriosis presents to the emergency room with complaints of right flank pain radiating down to the right lower abdomen that started earlier today. After the pain started she began her menstrual cycle. She is about 2 weeks late which makes her concerned for possible and miscarriage. She has been treated for endometriosis by Dr. Mckinley. She has a pending hysterectomy scheduled with Dr. AVILA July 01. She states her current pain seems a bit different than her usual endometriosis pain because it started prior to the bleeding rather than afterward and it is more unilateral rather than across the back as it usually starts. Abdomen is nontender. She denies any fever or chills. No urinary changes. No history of ureteral stones. She does have history of ovarian cyst. She has only been sexually active about 4 times in the past few months. How ever, is a possibility. She is surgically absent her appendix. She additionally complains of a burning sensation around her scar. There is erythema in the skin fold of that region on exam. Allergies and Home Medications Allergies Coded Allergies: No Known Drug Allergies (Unverified , 08/26/11) Patient Home Medication List Home Medication List Reviewed: Yes Buspirone HCl (Buspirone HCl) 15 Mg Tablet, 15 MG PO BID, (Reported) Entered as Reported by: SHAILESH TRISTAN on 07/06/21 0835 Clindamycin HCl (Clindamycin HCl) 300 Mg Capsule, 300 MG PO QID Prescribed by: LILLIANA NAVA on 12/29/21 1728 Dicyclomine HCl (Dicyclomine HCl) 10 Mg Capsule, 10 MG PO QID PRN for abdominal cramping Prescribed by: SHAILESH TRISTAN on 07/06/21 0943 Hydrocodone Bit/Acetaminophen (HYDROcodone/APAP 5 MG/325 MG TAB) 1 Tab Tab, 1 TAB PO Q6H Prescribed by: LILLIANA NAVA on 12/29/21 1729 Review of Systems Review of Systems Constitutional: no symptoms reported EENTM: No Symptoms Reported Respiratory: No Symptoms Reported Cardiovascular: No Symptoms Reported Gastrointestinal: See HPI Genitourinary: See HPI Musculoskeletal: no symptoms reported Skin: no symptoms reported Psychiatric/Neurological: No Symptoms Reported Endocrine: No Symptoms Reported Hematologic/Lymphatic: No Symptoms Reported Past Keplgke-Dptbjf-Xlsaxi Hx Patient Social History Tobacco Use?: No Use of E-Cig and/or Vaping dev: No Substance use?: No Alcohol Use?: No Pt feels they are or have been: No Immunizations Up To Date First/Initial COVID19 Vaccinat: Not currently vaccinated Second COVID19 Vaccination Marcelino: Not currently vaccinated Third COVID19 Vaccination Date: Not currently vaccinated Seasonal Allergies Seasonal Allergies: No Past Medical History Surgery/Hospitalization HX: x2 most current 12/17/21; Tonsilectomy; Appendectomy; Depression. Surgeries: Yes (dental) Appendectomy, Section, Tonsillectomy Respiratory: No Cardiac: No Neurological: No : No Last Menstrual Period: Mar 31, 2022 Reproductive Disorders: Yes Female Reproductive Disorders: Endometriosis, Ovarian Cyst Genitourinary: No Gastrointestinal: No Musculoskeletal: No Endocrine: No HEENT: No Cancer: No Psychosocial: No Integumentary: No Blood Disorders: No Physical Exam Vital Signs Vital Signs - First Documented 05/13/22 23:50 Temp 37.0 Pulse 73 Resp 16 B/P (MAP) 159/102 (121) Pulse Ox 99 O2 Delivery Room Air Capillary Refill : Less Than 3 Seconds Height/Weight/BMI Height: '" Weight: lbs. oz. kg; 35.00 BMI Method: General Appearance: WD/WN, no apparent distress HEENT: normal ENT inspection Neck: normal inspection Respiratory: lungs clear, normal breath sounds, no respiratory distress Cardiovascular: regular rate, rhythm, no edema, no murmur Gastrointestinal: normal bowel sounds, non tender, soft; No distended Extremities: normal inspection, no pedal edema Back: CVA tenderness (R) (Minimal) Neurologic/Psychiatric: no motor/sensory deficits, alert, normal mood/affect, oriented x 3 Skin: normal color, warm/dry, other (Erythema, inflammation in the skin fold around her section scar) Progress/Results/Core Measures Results/Orders Lab Results Laboratory Tests Test 05/13/22 23:52 05/14/22 00:30 Range/Units Urine Color YELLOW Urine Clarity CLOUDY Urine pH 6.0 5-9 Urine Specific [place] >=1.030 1.016-1.022 Urine Protein TRACE H NEGATIVE Urine Glucose (UA) NEGATIVE NEGATIVE Urine Ketones NEGATIVE NEGATIVE Urine Nitrite NEGATIVE NEGATIVE Urine Bilirubin NEGATIVE NEGATIVE Urine Urobilinogen 0.2 < = 1.0 MG/DL Urine Leukocyte Esterase NEGATIVE NEGATIVE Urine RBC (Auto) 3+ H NEGATIVE Urine RBC 50-100 H /HPF Urine WBC RARE /HPF Urine Squamous Epithelial Cells 0-2 /HPF Urine Crystals NONE /LPF Urine Bacteria NEGATIVE /HPF Urine Casts NONE /LPF Urine Mucus NEGATIVE /LPF Urine Culture Indicated NO White Blood Count 10.0 4.3-11.0 10^3/uL Red Blood Count 4.50 3.80-5.11 10^6/uL Hemoglobin 13.8 11.5-16.0 g/dL Hematocrit 40 35-52 % Mean Corpuscular Volume 90 80-99 fL Mean Corpuscular Hemoglobin 31 25-34 pg Mean Corpuscular Hemoglobin Concent 34 32-36 g/dL Red Cell Distribution Width 14.5 10.0-14.5 % Platelet Count 293 130-400 10^3/uL Mean Platelet Volume 9.6 9.0-12.2 fL Immature Granulocyte % (Auto) 0 % Neutrophils (%) (Auto) 56 42-75 % Lymphocytes (%) (Auto) 27 12-44 % Monocytes (%) (Auto) 12 0-12 % Eosinophils (%) (Auto) 5 0-10 % Basophils (%) (Auto) 1 0-10 % Neutrophils # (Auto) 5.6 1.8-7.8 10^3/uL Lymphocytes # (Auto) 2.7 1.0-4.0 10^3/uL Monocytes # (Auto) 1.2 H 0.0-1.0 10^3/uL Eosinophils # (Auto) 0.5 H 0.0-0.3 10^3/uL Basophils # (Auto) 0.1 0.0-0.1 10^3/uL Immature Granulocyte # (Auto) 0.0 0.0-0.1 10^3/uL Sodium Level 140 135-145 MMOL/L Potassium Level 3.7 3.6-5.0 MMOL/L Chloride Level 106 98-107 MMOL/L Carbon Dioxide Level 22 21-32 MMOL/L Anion Gap 12 5-14 MMOL/L Blood Urea Nitrogen 18 7-18 MG/DL Creatinine 0.89 0.60-1.30 MG/DL Estimat Glomerular Filtration Rate 91 BUN/Creatinine Ratio 20 Glucose Level 96 70-105 MG/DL Calcium Level 8.8 8.5-10.1 MG/DL Corrected Calcium 8.6 8.5-10.1 MG/DL Total Bilirubin 0.2 0.1-1.0 MG/DL Aspartate Amino Transf (AST/SGOT) 34 5-34 U/L Alanine Aminotransferase (ALT/SGPT) 42 0-55 U/L Alkaline Phosphatase 78 40-136 U/L C-Reactive Protein 0.45 <0.50 MG/DL Total Protein 7.1 6.4-8.2 GM/DL Albumin 4.3 3.2-4.5 GM/DL Serum Test, Qualitative NEGATIVE NEGATIVE My Orders Orders - MICHELLE BELL MD Ua Culture If Indicated (05/13/22 23:57) Urine Bedside (05/13/22 23:57) Cbc With Automated Diff (05/14/22 00:25) Comprehensive Metabolic Panel (05/14/22 00:25) Hcg,Qualitative Serum (05/14/22 00:25) Ed Iv/Invasive Line Start (05/14/22 00:25) Crp Fs (05/14/22 00:27) Ketorolac Injection (Toradol Injection) (05/14/22 01:15) Medications Given in ED Current Medications Medications Dose Ordered Sig/Mateo Route Start Time Stop Time Status Last Admin Dose Admin Ketorolac Tromethamine 30 mg ONCE ONCE IVP 05/14/22 01:15 05/14/22 01:16 DC 05/14/22 01:15 30 MG Vital Signs/I&O 05/13/22 05/14/22 23:50 01:18 Temp 37.0 37.0 Pulse 73 73 Resp 16 16 B/P (MAP) 159/102 (121) 159/102 Pulse Ox 99 99 O2 Delivery Room Air Room Air Blood Pressure Mean: 121 Progress Progress Note : Progress Note Labs were unremarkable. Urinalysis showed hematuria but she is on her menstrual cycle. Exam was notable for lack of tenderness in the flank or pelvis. Serum test was negative. I discussed options with the patient. I reviewed options for further evaluation which included CT scan now and ultrasound in the morning. Patient states her primary concern is that she might be and miscarrying. She does not feel additional imaging studies are necessary at this time and that this is likely an atypical presentation of her endometriosis. If she had notable tenderness on exam or abnormal labs, I offered Toradol for management of pain which she accepted. Return precautions advised. See dischar ge instructions for further details. Departure Impression Primary Impression: Right flank pain Additional Impressions: History of endometriosis Late menses Cellulitis Qualified Codes: L03.311 - Cellulitis of abdominal wall Disposition: HOME, SELF-CARE Condition: Stable Departure-Patient Inst. Decision time for Depature: 01:14 Referrals: FAITH FREGOSO MD (PCP/Family) Primary Care Physician Patient Instructions: Abdominal Pain, Adult ED, Endometriosis ED Add. Discharge Instructions: You may take ibuprofen up to 600 mg every 6 hours and/or Tylenol (acetaminophen) up to 1000 mg every 6 hours as needed for pain. Return to the emergency room if you have escalating pain or develop additional symptoms such as vomiting, fever, bloody urine, etc. Follow-up with a primary care provider and an experimental plastics fabricator as soon as possible. All discharge instructions reviewed with patient and/or family. Voiced understanding. Scripts Clotrimazole (Clotrimazole) 1 % Cream..g. 15 GM TP BID, #1 EA 1 Refill Prov: MICHELLE BELL MD 05/14/22 Cephalexin (Cephalexin) 500 Mg Tablet 500 MG PO QID, #28 TAB Prov: MICHELLE BELL MD 05/14/22 Copy Copies To 1: DESTINEE AVILA MD, JOSHUA T MD May 14, 2022 01:16
[2022-05-14 01:18] VITALS: BP 159/102
[2022-05-14] MEDS ORDERED: CLOT15CR28 TP (01:35)
[2022-05-14] MEDS ORDERED: CEPH500T PO (01:35)
== END 2022-05-14 01:18 | disposition home or self-care (01) ==
LOC: EDUNIT# 23:46 → ER FS 23:48
DX: L03.311 Cellulitis of abdominal wall (principal); N91.2 Amenorrhea, unspecified; Z87.42 Personal history of other diseases of the female genital tract; Z28.310 Unvaccinated for COVID-19
CPT/HCPCS: 36415; 80053; 81000; 84703; 85025; 86141

== ENCOUNTER 2022-07-14 12:03 | Emergency (ER) | payer MEDICAID ==
[~2022-07-14] VITALS: Ht 162 cm; Wt 96.0 kg
[~2022-07-14 12:03] MED LIST changes: +CEPH500T PO; +CLOT15CR28 TP
[2022-07-14] MEDS ORDERED: ONDANSETRON 4 MG (ZOFRAN) ORAL DISSOLVE TAB PO STA (12:28)
[2022-07-14] MEDS ORDERED: KETOROLAC 30 MG/ML VIAL IM ONE (12:30)
[2022-07-14] MEDS ORDERED: AMOX1TAB12 PO (12:34)
[2022-07-14] MEDS ORDERED: ACET-11 PO (12:34)
[2022-07-14] MEDS ORDERED: ONDA4TAB11 SL (12:34)
[2022-07-14] MEDS ORDERED: KETOROLAC 15 MG/ML VIAL ONE (12:34)
--- NOTE | 2022-07-14 12:34 | ED General ---
General Chief Complaint: Cough/Cold/Flu Symptoms Stated Complaint: FEVER Source of Information: Patient Exam Limitations: No Limitations History of Present Illness Date Seen by Provider: Jul 14, 2022 Time Seen by Provider: 12:05 Initial Comments 27-year-old female with no pertinent past medical history coming in due to fever, nausea, congestion, sore throat, headache, vomiting, and diarrhea. She states this started roughly 3 days ago. She had a couple teeth removed on and finished amoxicillin for tooth infection on that day. She is having some mild pain in that area, but no swelling or redness. Denies any cough, chest pain, shortness of breath, abdominal pain, or any other concerns. Is on the Depo shot and does not have regular periods. Is otherwise denying any other acute complaints. Last had Tylenol couple hours ago. Last had ibuprofen more than 12 hours ago. Allergies and Home Medications Allergies Coded Allergies: No Known Drug Allergies (Unverified , 08/26/11) Patient Home Medication List Home Medication List Reviewed: Yes Buspirone HCl (Buspirone HCl) 15 Mg Tablet, 15 MG PO BID, (Reported) Entered as Reported by: SHAILESH TRISTAN on 07/06/21 0835 Cephalexin (Cephalexin) 500 Mg Tablet, 500 MG PO QID Prescribed by: MICHELLE VINSON on 05/14/22 013 Clindamycin HCl (Clindamycin HCl) 300 Mg Capsule, 300 MG PO QID Prescribed by: LILLIANA NAVA on 12/29/21 1728 Clotrimazole (Clotrimazole) 1 % Cream..g., 15 GM TP BID Prescribed by: MICHELLE VINSON on 05/14/22 013 Dicyclomine HCl (Dicyclomine HCl) 10 Mg Capsule, 10 MG PO QID PRN for abdominal cramping Prescribed by: SHAILESH TRISTAN on 07/06/21 0943 Hydrocodone Bit/Acetaminophen (HYDROcodone/APAP 5 MG/325 MG TAB) 1 Tab Tab, 1 TAB PO Q6H Prescribed by: LILLIANA NAVA on 12/29/21 1729 Review of Systems Review of Systems Constitutional: fever EENTM: nose congestion Respiratory: No cough Cardiovascular: No chest pain Gastrointestinal: vomiting Genitourinary: no symptoms reported Musculoskeletal: no symptoms reported Skin: no symptoms reported Psychiatric/Neurological: No Symptoms Reported Hematologic/Lymphatic: No Symptoms Reported Immunological/Allergic: no symptoms reported All Other Systems Reviewed Negative Unless Noted: Yes Past Tbbyhps-Nekcak-Ysgsis Hx Patient Social History Substance use?: No Immunizations Up To Date First/Initial COVID19 Vaccinat: Not currently vaccinated Second COVID19 Vaccination Marcelino: Not currently vaccinated Third COVID19 Vaccination Date: Not currently vaccinated Seasonal Allergies Seasonal Allergies: No Past Medical History Surgery/Hospitalization HX: x2 most current 12/17/21; Tonsilectomy; Appendectomy; Depression. Surgeries: Yes (dental) Appendectomy, Section, Tonsillectomy Respiratory: No Cardiac: No Neurological: No Reproductive Disorders: Yes Female Reproductive Disorders: Endometriosis, Ovarian Cyst Genitourinary: No Gastrointestinal: No Musculoskeletal: No Endocrine: No HEENT: No Cancer: No Psychosocial: No Integumentary: No Blood Disorders: No Physical Exam Vital Signs Capillary Refill : Height, Weight, BMI Height: '" Weight: lbs. oz. kg; 35.00 BMI Method: General Appearance: No Apparent Distress, WD/WN Eyes: Bilateral Eye Normal Inspection HEENT: PERRL/EOMI, TMs Normal, Normal ENT Inspection, Pharynx Normal Neck: Full Range of Motion, Normal Inspection, Non Tender, Supple Respiratory: Chest Non Tender, Lungs Clear, Normal Breath Sounds, No Accessory Muscle Use, No Respiratory Distress Cardiovascular: Regular Rate, Rhythm, No Edema, Normal Peripheral Pulses Gastrointestinal: Normal Bowel Sounds, Non Tender, Soft; No Distended, No Guarding Back: Normal Inspection, No CVA Tenderness, No Vertebral Tenderness Extremity: Normal Capillary Refill, Normal Inspection, Normal Range of Motion, Non Tender, No Calf Tenderness, No Pedal Edema Neurologic/Psychiatric: Alert, No Motor/Sensory Deficits, Normal Mood/Affect Skin: Normal Color, Warm/Dry Lymphatic: No Adenopathy Progress/Results/Core Measures Suspected Sepsis SIRS Temperature: Pulse: Respiratory Rate: Blood Pressure / Mean: Results/Orders My Orders Orders - LILLIANA NAVA MD Ketorolac Injection (Toradol Injection) (07/14/22 12:30) Dexamethasone Injection (Decadron Injec (07/14/22 12:30) Influenza A And B By Pcr (07/14/22 12:26) Covid 19 Inhouse Test (07/14/22 12:26) Vital Signs/I&O Capillary Refill : Progress Note : Progress Note 27-year-old female with above history coming in due to multiple URI type symptoms as well as vomiting and diarrhea. ABCs were intact and vitals were stable on presentation. Physical exam reassuring including soft and nontender abdomen. COVID and flu testing sent, hold off on strep testing with the sore throat given her lack of tonsils. Gave her Toradol IM as well as Decadron for her sore throat. Headache is mild, no meningismus, normal mental status, and afebrile here, very unlikely she has meningitis. Likely is a viral illness. I will send [id number] antibiotics given the recent tooth infection, and she will be instructed if she has increasing swelling or pain in her mouth, she should fill the antibiotic prescription, and follow-up with her regular doctor soon as possible afterwards. She was then discharged home in stable condition with strict return precautions. Departure Impression Primary Impression: Fever in adult Additional Impression: Vomiting in adult Disposition: 01 HOME, SELF-CARE Condition: Stable Departure-Patient Inst. Decision time for Depature: 12:40 Referrals: FAITH FREGOSO MD (PCP) Primary Care Physician Patient Instructions: Fever, Adult ED, Nausea and Vomiting, Adult ED Add. Discharge Instructions: Continue to take ibuprofen and/or Tylenol as needed for fever or pain. Nausea medicines were sent to your pharmacy. Augmentin was also sent, which is an antibiotic. Only take this if you have increasing swelling or pain to your mouth that would be concerning for infection. If this happens, I would want you to follow-up with your regular doctor to be sure you are improving. We will call you with results your flu and COVID testing here. Try to take in as much fluid as possible, it is okay if you are not wanting to eat when you are sick like this. Scripts Acetaminophen with Codeine (Acetaminophen-Cod #3 Tablet) 300 Mg-30 Mg Tablet 1 EACH PO Q6H for 3 Days, #12 TAB Prov: LILLIANA NAVA MD 07/14/22 Ondansetron (Ondansetron Odt) 4 Mg Tab.rapdis 4 MG SL Q6H PRN for NAUSEA/VOMITING for 5 Days, #10 TAB Prov: LILLIANA NAVA MD 07/14/22 Amoxicillin/Potassium Clav (Amox Tr-K Clv 875-125 mg Tab) 875 Mg-125 Mg Tablet 1 EACH PO BID for 7 Days, #14 TAB Prov: LILLIANA NAVA MD 07/14/22 Work/School Note: Work Release Form Date Seen in the Emergency Department: Jul 14, 2022 Return to Work: Jul 15, 2022 Restrictions: Return-No Fever (24hrs), Return-No Vomiting(24hrs) LILLIANA NAVA MD Jul 14, 2022 12:33
[2022-07-14 12:48] VITALS: BP 145/90
== END 2022-07-14 12:45 | disposition home or self-care (01) ==
LOC: EDUNIT# 12:03 → ER FS 12:05
DX: R50.9 Fever, unspecified (principal); R11.2 Nausea with vomiting, unspecified; R19.7 Diarrhea, unspecified; J02.9 Acute pharyngitis, unspecified; R51.9 Headache, unspecified; Z28.310 Unvaccinated for COVID-19; Z20.822 Contact with and (suspected) exposure to COVID-19
CPT/HCPCS: 87636; 99283

== ENCOUNTER 2023-04-12 12:38 | Emergency (ER) | payer SELFPAY ==
[~2023-04-12] VITALS: Ht 162 cm; Wt 93.0 kg
[~2023-04-12 12:38] MED LIST changes: +ACET-11 PO; +AMOX1TAB12 PO; +ONDA4TAB11 SL
[2023-04-12 12:52] LABS: BILIRUBIN,URINE NEGATIVE (NEGATIVE); CLARITY,URINE CLEAR; COLOR,URINE YELLOW; GLUCOSE, URINE (UA) NEGATIVE (NEGATIVE); KETONES,URINE NEGATIVE (NEGATIVE); LEUKOCYTE ESTERASE ,URINE NEGATIVE (NEGATIVE); NITRITE,URINE NEGATIVE (NEGATIVE); PH,URINE 5.5 (5-9); PROTEIN,URINE NEGATIVE (NEGATIVE)
[2023-04-12] MEDS ORDERED: PANTOPRAZOLE 40 MG (PROTONIX) VIAL IV STA (12:54)
[2023-04-12] MEDS ORDERED: KETOROLAC INJ 30 MG/ML VIAL IVP STA (12:54)
[2023-04-12] MEDS ORDERED: NS IV 1000 ML 1,000 ML IV STA (12:54)
[2023-04-12 12:55] LABS: BACTERIA,URINE FEW /HPF; SQUAMOUS EPITHELIAL CELL,UR 25-50 /HPF; WBC,URINE 0-2 /HPF
--- NOTE | 2023-04-12 13:01 | ED Back Pain ---
General Chief Complaint: Back Problems Stated Complaint: LWR BACK PAIN Source of Information: Patient History of Present Illness Date Seen by Provider: Apr 12, 2023 Time Seen by Provider: 12:41 Initial Comments 27-year-old female presenting with complaints over 2 months of diarrhea. She has had some intermittent right flank pain as well. Since last night she has had some heartburn and bad taste in her mouth as well as burning to the right flank. She has a history of endometriosis and painful menstrual cycles and states that it is about time for her cycle so she was not sure if that was part of the pain. She tried taking Tylenol approximately an hour before arrival but it has not helped with her pain and symptoms. She denies seeing any blood in the diarrhea. She has no burning or pain with urination and no blood in her urine. She has previously had surgery on her abdomen for as well as appendix. She states that her appendix and become infected and caused problems with her fallopian tube where she had to have a drain for the abscess. This was in 2013. Timing/Duration: Getting Worse (Off and on over the last 2 months but getting worse in the last day or 2.) Severity: Moderate Pain/Injury Location: Abdomen, Back Method of Injury: Unknown Modifying Factors: Worse With Movement Associated Symptoms: No muscle spasms, No fever, No weakness, No numbness in legs/feet, No tingling in legs/feet, No sensory/motor loss; lower back pain; No loss of bladder control, No loss of bowel control Allergies and Home Medications Allergies Coded Allergies: No Known Drug Allergies (Unverified , 08/26/11) Patient Home Medication List Home Medication List Reviewed: Yes Acetaminophen with Codeine (Acetaminophen-Cod #3 Tablet) 300 Mg-30 Mg Tablet, 1 EACH PO Q6H Prescribed by: LILLIANA NAVA on 07/14/22 1234 Amoxicillin/Potassium Clav (Amox Tr-K Clv 875-125 mg Tab) 875 Mg-125 Mg Tablet, 1 EACH PO BID Prescribed by: LILLIANA NAVA on 07/14/22 1234 Buspirone HCl (Buspirone HCl) 15 Mg Tablet, 15 MG PO BID, (Reported) Entered as Reported by: SHAILESH TRISTAN on 07/06/21 0835 Cephalexin (Cephalexin) 500 Mg Tablet, 500 MG PO QID Prescribed by: MICHELLE VINSON on 05/14/22 0135 Clindamycin HCl (Clindamycin HCl) 300 Mg Capsule, 300 MG PO QID Prescribed by: LILLIANA NAVA on 12/29/21 1728 Clotrimazole (Clotrimazole) 1 % Cream..g., 15 GM TP BID Prescribed by: MICHELLE VINSON on 05/14/22 0135 Dicyclomine HCl (Dicyclomine HCl) 10 Mg Capsule, 10 MG PO QID PRN for abdominal cramping Prescribed by: SHAILESH TRISTAN on 07/06/21 0943 Dicyclomine HCl (Dicyclomine HCl) 10 Mg Capsule, 10 MG PO QID PRN for ABDOMINAL PAIN Prescribed by: SHAILESH TRISTAN on 04/12/23 1400 Hydrocodone Bit/Acetaminophen (HYDROcodone/APAP 5 MG/325 MG TAB) 1 Tab Tab, 1 TAB PO Q6H Prescribed by: LILLIANA NAVA on 12/29/21 1729 Hydrocodone/Acetaminophen (Hydrocodone-Acetamin 5-325 mg) 5 Mg-325 Mg Tablet, 1 TAB PO Q6H PRN for PAIN SEVERE Prescribed by: SHAILESH TRISTAN on 04/12/23 1404 Ondansetron (Ondansetron Odt) 4 Mg Tab.rapdis, 4 MG SL Q6H PRN for NAUSEA/VOMITING Prescribed by: LILLIANA NAVA on 07/14/22 1234 Review of Systems Constitutional: No chills, No fever EENTM: no symptoms reported Respiratory: no symptoms reported Cardiovascular: no symptoms reported Gastrointestinal: see HPI, diarrhea (For the last 2 months after every meal she would have diarrhea. She also has it first thing in the morning.) Genitourinary: no symptoms reported Musculoskeletal: see HPI Skin: no symptoms reported Psychiatric/Neurological: Anxiety Past Bbsaodk-Qnfjaf-Ycqisn Hx Patient Social History Tobacco Use?: Yes Use of E-Cig and/or Vaping dev: Yes Substance use?: Yes Substance type: Other Additional substance use comme: CBD Alcohol Use?: No Immunizations Up To Date First/Initial COVID19 Vaccinat: Not currently vaccinated Second COVID19 Vaccination Marcelino: Not currently vaccinated Third COVID19 Vaccination Date: Not currently vaccinated Seasonal Allergies Seasonal Allergies: No Past Medical History Surgery/Hospitalization HX: x2 most current 12/17/21; Tonsilectomy; Appendectomy; Depression. Surgeries: Yes (dental) Appendectomy, Section, Tonsillectomy Respiratory: No Cardiac: No Neurological: No Reproductive Disorders: Yes Female Reproductive Disorders: Endometriosis, Ovarian Cyst Genitourinary: No Gastrointestinal: No Musculoskeletal: No Endocrine: No HEENT: No Cancer: No Psychosocial: No Integumentary: No Blood Disorders: No Physical Exam Vital Signs Vital Signs - First Documented 04/12/23 12:52 Temp 36.6 Pulse 60 Resp 18 B/P (MAP) 144/86 (105) Pulse Ox 97 O2 Delivery Room Air Capillary Refill : Height, Weight, BMI Height: '" Weight: lbs. oz. kg; 36.00 BMI Method: General Appearance: No Apparent Distress, WD/WN Cardiovascular: Regular Rate, Rhythm, Normal Peripheral Pulses Respiratory: Chest Non Tender, Lungs Clear, Normal Breath Sounds Gastrointestinal: Normal Bowel Sounds, No Pulsatile Mass, Soft; No Distended, No Guarding, No Hepatomegaly, No Rebound; Tenderness (Right flank and right lower quadrant) Back: CVA Tenderness (R) Extremity: Normal Capillary Refill, Normal Inspection, No Pedal Edema Neurologic/Psychiatric: Alert, Oriented x3, maxillofacial pathology II-XII Norm as Tested Skin: Normal Color, Warm/Dry Progress/Results/Core Measures Results/Orders Lab Results Laboratory Tests Test 04/12/23 12:47 04/12/23 13:05 Range/Units Urine Color YELLOW Urine Clarity CLEAR Urine pH 5.5 5-9 Urine Specific [place] >=1.030 1.016-1.022 Urine Protein NEGATIVE NEGATIVE Urine Glucose (UA) NEGATIVE NEGATIVE Urine Ketones NEGATIVE NEGATIVE Urine Nitrite NEGATIVE NEGATIVE Urine Bilirubin NEGATIVE NEGATIVE Urine Urobilinogen 0.2 < = 1.0 MG/DL Urine Leukocyte Esterase NEGATIVE NEGATIVE Urine RBC (Auto) TRACE-I H NEGATIVE Urine RBC NONE /HPF Urine WBC 0-2 /HPF Urine Squamous Epithelial Cells 25-50 H /HPF Urine Crystals NONE /LPF Urine Bacteria FEW H /HPF Urine Casts NONE /LPF Urine Mucus NEGATIVE /LPF Urine Culture Indicated NO White Blood Count 7.4 4.3-11.0 10^3/uL Red Blood Count 4.70 3.80-5.11 10^6/uL Hemoglobin 14.4 11.5-16.0 g/dL Hematocrit 44 35-52 % Mean Corpuscular Volume 94 80-99 fL Mean Corpuscular Hemoglobin 31 25-34 pg Mean Corpuscular Hemoglobin Concent 33 32-36 g/dL Red Cell Distribution Width 12.5 10.0-14.5 % Platelet Count 337 130-400 10^3/uL Mean Platelet Volume 9.7 9.0-12.2 fL Immature Granulocyte % (Auto) 0 % Neutrophils (%) (Auto) 50 42-75 % Lymphocytes (%) (Auto) 36 12-44 % Monocytes (%) (Auto) 10 0-12 % Eosinophils (%) (Auto) 3 0-10 % Basophils (%) (Auto) 1 0-10 % Neutrophils # (Auto) 3.7 1.8-7.8 10^3/uL Lymphocytes # (Auto) 2.6 1.0-4.0 10^3/uL Monocytes # (Auto) 0.7 0.0-1.0 10^3/uL Eosinophils # (Auto) 0.2 0.0-0.3 10^3/uL Basophils # (Auto) 0.1 0.0-0.1 10^3/uL Immature Granulocyte # (Auto) 0.0 0.0-0.1 10^3/uL Sodium Level 140 135-145 MMOL/L Potassium Level 4.4 3.6-5.0 MMOL/L Chloride Level 103 98-107 MMOL/L Carbon Dioxide Level 24 21-32 MMOL/L Anion Gap 13 5-14 MMOL/L Blood Urea Nitrogen 11 7-18 MG/DL Creatinine 0.74 0.60-1.30 MG/DL Estimat Glomerular Filtration Rate 113 BUN/Creatinine Ratio 15 Glucose Level 101 70-105 MG/DL Calcium Level 9.9 8.5-10.1 MG/DL Corrected Calcium 9.6 8.5-10.1 MG/DL Total Bilirubin 0.2 0.1-1.0 MG/DL Aspartate Amino Transf (AST/SGOT) 21 5-34 U/L Alanine Aminotransferase (ALT/SGPT) 23 0-55 U/L Alkaline Phosphatase 61 40-136 U/L Total Protein 7.3 6.4-8.2 GM/DL Albumin 4.4 3.2-4.5 GM/DL Lipase 29 8-78 U/L My Orders Orders - ENYART,SHAILESH E MD Ua Culture If Indicated (04/12/23 12:43) Urine Bedside (04/12/23 12:43) Comprehensive Metabolic Panel (04/12/23 12:54) Lipase (04/12/23 12:54) Ed Iv/Invasive Line Start (04/12/23 12:54) Cbc With Automated Diff (04/12/23 12:54) Ct Abdomen/Pelvis W (04/12/23 12:54) Ns Iv 1000 Ml (Sodium Chloride 0.9%) (04/12/23 12:54) Ketorolac Injection (Ketorolac Injection (04/12/23 12:54) Pantoprazole Injection (Protonix Injecti (04/12/23 12:54) Iohexol Injection (Omnipaque 350 Mg/Ml 1 (04/12/23 13:15) Received Contrast (Hold Metformin- Contr (04/12/23 13:15) Ns (Ivpb) 100 Ml (Sodium Chloride 0.9% 1 (04/12/23 13:15) Medications Given in ED Current Medications Medications Dose Ordered Sig/Mateo Route Start Time Stop Time Status Last Admin Dose Admin Iohexol 100 ml ONCE ONCE IV 04/12/23 13:15 04/12/23 13:16 DC 04/12/23 13:17 80 ML Sodium Chloride 100 ml ONCE ONCE IV 04/12/23 13:15 04/12/23 13:16 DC 04/12/23 13:17 80 ML Vital Signs/I&O 04/12/23 12:52 Temp 36.6 Pulse 60 Resp 18 B/P (MAP) 144/86 (105) Pulse Ox 97 O2 Delivery Room Air Progress Progress Note #1: Progress Note Potential diagnosis of pyelonephritis, cholecystitis, colitis, diverticulitis, endometriosis. Obtain urinalysis and do a urine bedside test. Establish peripheral IV access and send labs for complete blood count, comprehensive metabolic profile, lipase. CT scan of the abdomen and pelvis with IV contrast to look for acute pathology in the belly to cause of your symptoms. Normal saline 1 L IV fluid bolus for hydration, Toradol 30 mg IV for pain, pantoprazole 40 mg IV for gastritis and reflux. Progress Note #2: Time: 13:39 Progress Note Complete blood count did not show any acute significant abnormality. Her comprehensive metabolic panel also did not have any acute electrolyte abnormalities. Her lipase was negative. Her urinalysis was concentrated with specific gravity greater than 1.030 but did not show nitrites or leukocyte esterase for UTI. On my personal review and interpretation of the CT scan of the abdomen pelvis with IV contrast study did not appreciate any acute process to be causing her right flank pain. Awaiting radiology reading. Progress Note #3: Time: 13:54 Progress Note I have reviewed the radiologist report on the CT scan of the abdomen and pelvis with IV contrast. The saw some small nonobstructing kidney stones on the right side. There is nothing in the actual ureter. She had small bilateral ovarian cysts but no signs of acute process to account for her complaint of right-sided flank pain. They did not appreciate any inflammation or bowel wall thickening of the colon to indicate a reason for her chronic diarrhea. The liver was b orderline enlarged and they did not appreciate any acute abnormality with the gallbladder. Will review findings with the patient and encourage follow-up through the clinic. If she continues to need something stronger for pain could write for a few hydrocodone for severe pain and have her continue with the anti- inflammatories as well as maybe try some Bentyl. Encourage fluids and rest. Check back with the clinic and they may want to set up an ultrasound or additional testing beyond what is available in the emergency department. Diagnostic Imaging Diagonstic Imaging: CT Plain Films/CT/US/NM/MRI: abdomen, pelvis Comments NAME: [facility] MCCARTY [facility] REC#: [id number] PT STATUS: REG ER : 1995 PHYSICIAN: SHAILESH TRISTAN MD ADMIT DATE: 04/12/23/ER FS Draft Date of Exam:04/12/23 CT ABDOMEN/PELVIS W PROCEDURE: CT abdomen and pelvis with contrast. TECHNIQUE: Multiple contiguous axial images were obtained through the abdomen and pelvis after administration of intravenous contrast. Auto Exposure Controls were utilized during the CT exam to meet ALARA standards for radiation dose reduction. All CT scans use one or more of the following dose optimizing techniques: automated exposure control, MA and/or KvP adjustment based on patient size and exam type or iterative reconstruction. INDICATION: 27-year-old female, right posterior pain radiating into the front. CORRELATION STUDY: None. FINDINGS: LOWER THORAX: Clear. LIVER: Borderline enlarged at 19.1 cm with mild steatosis. Small calcified granuloma. GALLBLADDER: Mildly contracted; otherwise, unremarkable. SPLEEN: Calcified granuloma; otherwise, unremarkable. PANCREAS: Unremarkable. ADRENAL GLANDS: Unremarkable. KIDNEYS: Probable tiny cortical cyst inferior pole of the right kidney. At least two nonobstructing stones in the inferior pole of the left kidney. No obstruction. ABDOMINAL AORTA: Unremarkable, nonaneurysmal. GASTROINTESTINAL TRACT: Stomach has a small amount of fluid. No small bowel obstruction. Colon is largely decompressed. Prior appendectomy. No abdominal ascites. URINARY BLADDER: Decompressed. REPRODUCTIVE: Prominence of the endometrial stripe, perhaps owing to phase of menstrual cycle, extending through the cervix. Cervical nabothian cyst. Probable small 2.2 cm left and 2 cm right ovarian cysts. OSSEOUS STRUCTURES: No acute abnormality. OTHER: None. IMPRESSION: 1. Negative for acute abnormality of the abdomen or pelvis. 2. Nonobstructing left renal stones. 3. Endometrium is prominent, likely owing to phase of menstrual cycle, along with small approximately 2 cm bilateral ovarian cysts. 4. Borderline hepatic enlargement with mild steatosis. Dictated on workstation # [id number] Dict: 04/12/23 1341 Trans: 04/12/23 1351 [id number] Interpreted by: SHAHRAM WILSON DO Electronically signed by: Reviewed: Reviewed by Me Departure Impression Primary Impression: Right flank pain Additional Impression: Diarrhea, unspecified Qualified Codes: R19.7 - Diarrhea, unspecified Disposition: 01 HOME, SELF-CARE Condition: Stable Departure-Patient Inst. Decision time for Depature: 13:58 Referrals: PAYTON URBANO APRN (PCP) Primary Care Physician [facility] (Family) Primary Care Physician Patient Instructions: Abdominal Pain, Adult ED, Diarrhea, Adult ED, Diet to Prevent Dumping Syndrome, Flank Pain ED, Probiotics, Ulcer and Gastritis Diet Add. Discharge Instructions: Try to stay well-hydrated and keep sipping on fluids. Try taking the dicyclomine or Bentyl to see if that might help with some of the pain. It might also help with the diarrhea as it can help to regulate the bowel movements. For severe pain use the hydrocodone 1 every 6 hours as needed for severe pain. Keep your follow-up appointment with the clinic on Thursday as scheduled to see if they need to do any additional testing beyond what is available here in the emergency department. All discharge instructions reviewed with patient and/or family. Voiced understanding. Scripts Hydrocodone/Acetaminophen (Hydrocodone-Acetamin 5-325 mg) 5 Mg-325 Mg Tablet 1 TAB PO Q6H PRN for PAIN SEVERE for 3 Days, #12 TAB 0 Refills Prov: SHAILESH TRISTAN MD 04/12/23 Dicyclomine HCl (Dicyclomine HCl) 10 Mg Capsule 10 MG PO QID PRN for ABDOMINAL PAIN for 7 Days, #28 CAP 0 Refills Prov: SHAILESH TRISTAN MD 04/12/23 SHAILESH TRISTAN MD Apr 12, 2023 13:00
[2023-04-12 13:11] LABS: BASOPHILS # (AUTO) 0.1 10^3/uL (0.0-0.1); BASOPHILS % (AUTO) 1 % (0-10); EOSINOPHILS # (AUTO) 0.2 10^3/uL (0.0-0.3); EOSINOPHILS % (AUTO) 3 % (0-10); HEMATOCRIT 44 % (35-52); HEMOGLOBIN 14.4 g/dL (11.5-16.0); LYMPHOCYTES # (AUTO) 2.6 10^3/uL (1.0-4.0); LYMPHOCYTES % (AUTO) 36 % (12-44); MEAN CORPUSCULAR HEMOGLOBIN 31 pg (25-34); MEAN CORPUSCULAR HGB CONC 33 g/dL (32-36); MEAN CORPUSCULAR VOLUME 94 fL (80-99); MEAN PLATELET VOLUME 9.7 fL (9.0-12.2); MONOCYTES # (AUTO) 0.7 10^3/uL (0.0-1.0); MONOCYTES % (AUTO) 10 % (0-12); NEUTROPHILS # (AUTO) 3.7 10^3/uL (1.8-7.8); NEUTROPHILS % (AUTO) 50 % (42-75); PLATELET COUNT 337 10^3/uL (130-400); WHITE BLOOD COUNT 7.4 10^3/uL (4.3-11.0)
[2023-04-12] MEDS ORDERED: IOHEXOL 350 MG/ML 100 ML (OMNIPAQUE 350) VIAL IV ONE (13:15)
[2023-04-12] MEDS ORDERED: HOLD METFORMIN - RECEIVED CONTRAST 20 ML VIAL IV SCH (13:15)
[2023-04-12] MEDS ORDERED: NS 100 ML (IVPB) BAG IV ONE (13:15)
[2023-04-12 13:31] LABS: CREATININE SERUM 0.74 MG/DL (0.60-1.30); POTASSIUM 4.4 MMOL/L (3.6-5.0)
[2023-04-12 13:32] LABS: ALBUMIN 4.4 GM/DL (3.2-4.5); BILIRUBIN,TOTAL 0.2 MG/DL (0.1-1.0); CALCIUM 9.9 MG/DL (8.5-10.1); TOTAL PROTEIN 7.3 GM/DL (6.4-8.2)
--- NOTE | 2023-04-12 13:52 | Diagnostic Imaging Report ---
PROCEDURE: CT abdomen and pelvis with contrast. TECHNIQUE: Multiple contiguous axial images were obtained through the abdomen and pelvis after administration of intravenous contrast. Auto Exposure Controls were utilized during the CT exam to meet ALARA standards for radiation dose reduction. All CT scans use one or more of the following dose optimizing techniques: automated exposure control, MA and/or KvP adjustment based on patient size and exam type or iterative reconstruction. INDICATION: 27-year-old female, right posterior pain radiating into the front. CORRELATION STUDY: None. FINDINGS: LOWER THORAX: Clear. LIVER: Borderline enlarged at 19.1 cm with mild steatosis. Small calcified granuloma. GALLBLADDER: Mildly contracted; otherwise, unremarkable. SPLEEN: Calcified granuloma; otherwise, unremarkable. PANCREAS: Unremarkable. ADRENAL GLANDS: Unremarkable. KIDNEYS: Probable tiny cortical cyst inferior pole of the right kidney. At least two nonobstructing stones in the inferior pole of the left kidney. No obstruction. ABDOMINAL AORTA: Unremarkable, nonaneurysmal. GASTROINTESTINAL TRACT: Stomach has a small amount of fluid. No small bowel obstruction. Colon is largely decompressed. Prior appendectomy. No abdominal ascites. URINARY BLADDER: Decompressed. REPRODUCTIVE: Prominence of the endometrial stripe, perhaps owing to phase of menstrual cycle, extending through the cervix. Cervical nabothian cyst. Probable small 2.2 cm left and 2 cm right ovarian cysts. OSSEOUS STRUCTURES: No acute abnormality. OTHER: None. IMPRESSION: 1. Negative for acute abnormality of the abdomen or pelvis. 2. Nonobstructing left renal stones. 3. Endometrium is prominent, likely owing to phase of menstrual cycle, along with small approximately 2 cm bilateral ovarian cysts. 4. Borderline hepatic enlargement with mild steatosis. Dictated by: Dictated on workstation # [id number]
[2023-04-12] MEDS ORDERED: DICY10CA12 PO (14:00)
[2023-04-12] MEDS ORDERED: ACHD5005 PO (14:00)
[2023-04-12 14:25] VITALS: BP 136/78
== END 2023-04-12 14:25 | disposition home or self-care (01) ==
LOC: EDUNIT# 12:38 → ER FS 12:39
DX: N20.0 Calculus of kidney (principal); R19.7 Diarrhea, unspecified; K21.9 Gastro-esophageal reflux disease without esophagitis; K29.70 Gastritis, unspecified, without bleeding; N83.202 Unspecified ovarian cyst, left side; N83.201 Unspecified ovarian cyst, right side; F17.290 Nicotine dependence, other tobacco product, uncomplicated; Z28.310 Unvaccinated for COVID-19; Z90.49 Acquired absence of other specified parts of digestive tract
CPT/HCPCS: 36415; 74177; 80053; 81000; 83690; 84703; 85025; Q9967

== ENCOUNTER 2023-06-10 14:20 | Emergency (ER) | payer MEDICAID ==
[~2023-06-10] VITALS: Ht 162 cm; Wt 92.0 kg
[~2023-06-10 14:20] MED LIST changes: +DICY-11 PO; -DICY10CA12 PO
[2023-06-10 14:35] VITALS: BP 134/80
[2023-06-10] MEDS ORDERED: KETO10TA PO (14:39)
--- NOTE | 2023-06-10 14:40 | ED General ---
General Chief Complaint: Back Problems Stated Complaint: GIMENEZ; LETHARGY Source of Information: Patient Exam Limitations: No Limitations History of Present Illness Date Seen by Provider: Jun 10, 2023 Time Seen by Provider: 14:25 Initial Comments 28-year-old female presents to the emergency department today for right sided abdominal pain. She has been dealing with it for 4 to 5 months. Summarized old record review to evaluate cyst. This is based on CAT scan she had here in March showing small bilateral ovarian cysts that are 2 cm apparently simple in nature. She states she has had intermittent pain in her right abdomen for for 5 months. She has had his HIDA scan in [place] ordered but she has not gotten it done yet. She denies any fevers chills nausea or vomiting. She states she was told by the clinic that "maybe the ER can do more for you." All other systems reviewed and negative except documented per HPI. Voice recognition software was used to help create this chart Allergies and Home Medications Allergies Coded Allergies: No Known Drug Allergies (Unverified , 08/26/11) Patient Home Medication List Home Medication List Reviewed: Yes Acetaminophen with Codeine (Acetaminophen-Cod #3 Tablet) 300 Mg-30 Mg Tablet, 1 EACH PO Q6H Prescribed by: LILLIANA NAVA on 07/14/22 1234 Amoxicillin/Potassium Clav (Amox Tr-K Clv 875-125 mg Tab) 875 Mg-125 Mg Tablet, 1 EACH PO BID Prescribed by: LILLIANA NAVA on 07/14/22 1234 Buspirone HCl (Buspirone HCl) 15 Mg Tablet, 15 MG PO BID, (Reported) Entered as Reported by: SHAILESH TRISTAN on 07/06/21 0835 Cephalexin (Cephalexin) 500 Mg Tablet, 500 MG PO QID Prescribed by: MICHELLE VINSON on 05/14/22 0135 Clindamycin HCl (Clindamycin HCl) 300 Mg Capsule, 300 MG PO QID Prescribed by: LILLIANA NAVA on 12/29/21 1728 Clotrimazole (Clotrimazole) 1 % Cream..g., 15 GM TP BID Prescribed by: MICHELLE VINSON on 05/14/22 013 Dicyclomine HCl (Dicyclomine HCl) 10 Mg Capsule, 10 MG PO QID PRN for abdominal cramping Prescribed by: SHAILESH TRISTAN on 07/06/21 0943 Dicyclomine HCl (Dicyclomine HCl) 10 Mg Capsule, 10 MG PO QID PRN for ABDOMINAL PAIN Prescribed by: SHAILESH TRISTAN on 04/12/23 1400 Hydrocodone Bit/Acetaminophen (HYDROcodone/APAP 5 MG/325 MG TAB) 1 Tab Tab, 1 T AB PO Q6H Prescribed by: LILLIANA NAVA on 12/29/21 1729 Hydrocodone/Acetaminophen (Hydrocodone-Acetamin 5-325 mg) 5 Mg-325 Mg Tablet, 1 TAB PO Q6H PRN for PAIN SEVERE Prescribed by: SHAILESH TRISTAN on 04/12/23 1404 Ondansetron (Ondansetron Odt) 4 Mg Tab.rapdis, 4 MG SL Q6H PRN for NAUSEA/VOMITING Prescribed by: LILLIANA NAVA on 07/14/22 1234 Review of Systems Review of Systems Constitutional: see HPI Past Jagnfkz-Snccwj-Mpdywg Hx Patient Social History Tobacco Use?: Yes Use of E-Cig and/or Vaping dev: Yes E-Cig or Vaping type used: Nicotine Substance use?: Yes Substance type: Other Additional substance use comme: Delta gummies Substance frequency: Daily Alcohol Use?: No Immunizations Up To Date First/Initial COVID19 Vaccinat: Not currently vaccinated Second COVID19 Vaccination Marcelino: Not currently vaccinated Third COVID19 Vaccination Date: Not currently vaccinated Seasonal Allergies Seasonal Allergies: No Past Medical History Surgery/Hospitalization HX: x2 most current 12/17/21; Tonsilectomy; Appendectomy; Depression. Surgeries: Yes (dental) Appendectomy, Section, Tonsillectomy Respiratory: No Cardiac: No Neurological: No Reproductive Disorders: Yes Female Reproductive Disorders: Endometriosis, Ovarian Cyst Genitourinary: No Gastrointestinal: No Musculoskeletal: No Endocrine: No HEENT: No Cancer: No Psychosocial: No Integumentary: No Blood Disorders: No Physical Exam Vital Signs Capillary Refill : Height, Weight, BMI Height: '" Weight: lbs. oz. kg; 35.00 BMI Method: General Appearance: No Apparent Distress, WD/WN HEENT: Normal ENT Inspection, Pharynx Normal Neck: Full Range of Motion, Normal Inspection, Non Tender, Supple Respiratory: Chest Non Tender, Lungs Clear, Normal Breath Sounds, No Accessory Muscle Use, No Respiratory Distress Cardiovascular: Regular Rate, Rhythm, No Murmur, Normal Peripheral Pulses Gastrointestinal: Normal Bowel Sounds, No Organomegaly, Soft, Tenderness (Ten derness palpation right upper abdomen right parascapular region. No rebound or guarding. No mass organomegaly. No skin changes.) Back: Normal Inspection, No Vertebral Tenderness Extremity: Normal Capillary Refill, Normal Inspection, Non Tender, No Calf Tenderness Neurologic/Psychiatric: Alert, Oriented x3 Skin: Normal Color, Warm/Dry Progress/Results/Core Measures Suspected Sepsis SIRS Temperature: Pulse: Respiratory Rate: Blood Pressure / Mean: Results/Orders My Orders Orders - BERHANE ANDERSON DO Ketorolac Injection (Ketorolac Injection (06/10/23 14:45) Vital Signs/I&O Capillary Refill : Departure Impression Primary Impression: Right sided abdominal pain Disposition: HOME, SELF-CARE Condition: Stable Departure-Patient Inst. Referrals: PAYTON URBANO APRN (PCP) Primary Care Physician [facility] (Family) Primary Care Physician Patient Instructions: Abdominal Pain, Adult ED Add. Discharge Instructions: Take the Toradol as prescribed as needed. Do not take any other anti- inflammatory medications while taking this. get your HIDA scan completed as previously recommended. Return to the emergency department for any severe concerns for All discharge instructions reviewed with patient and/or family. Voiced understanding. Scripts Ketorolac Tromethamine (Ketorolac Tromethamine) 10 Mg Tablet 10 MG PO TID for Pain for 3 Days, #9 TAB Prov: BERHANE ANDERSON DO 06/10/23 BERHANE ANDERSON DO Jun 10, 2023 14:40
[2023-06-10] MEDS ORDERED: KETOROLAC INJ 15 MG/ML VIAL IM ONE (14:45)
== END 2023-06-10 14:45 | disposition home or self-care (01) ==
LOC: EDUNIT# 14:20 → ER FS 14:21
DX: R10.11 Right upper quadrant pain (principal); F17.290 Nicotine dependence, other tobacco product, uncomplicated; Z28.310 Unvaccinated for COVID-19
CPT/HCPCS: 99284

== ENCOUNTER → 2023-06-16 | Outpatient (CLI) | payer MEDICAID ==
[~2023-06-16] MED LIST changes: +CATHETER FLUSH 10 ML SYR IVP PRN; +KETO10TA PO
--- NOTE | 2023-06-16 14:05 | Diagnostic Imaging Report ---
RADIOPHARMACEUTICAL: 5.17 mCi Tc-99m Choletec IV INDICATION: Right-sided abdominal pain. COMPARISON: 04/12/2023. TECHNIQUE: Anterior dynamic imaging for 1 hour. Additional 60 minutes of imaging was performed after patient ingested an 8 ounce can of Ensure Plus. FINDINGS: There is homogenous uptake throughout the liver. The gallbladder is visualized at 15 minutes and small bowel at 65 minutes. After ingesting an 8 ounce can of Ensure Plus, the gallbladder ejection fraction is calculated to be 76%, which is within normal limits. Of note, the patient did not experience pain during the examination. IMPRESSION: 1. Normal HIDA Scan without evidence of cystic or common duct obstruction. 2. Normal GBEF of 76%. Dictated by: Dictated on workstation # [id number]
== END ==
LOC: CARD 09:50
PROVIDERS: ATTEND Nurse Practitioner Family
DX: R10.9 Unspecified abdominal pain (principal)
CPT/HCPCS: 78227; A9537